=== PATIENT | female | born 1985 | race Caucasian/White ===

== ENCOUNTER 2019-05-20 14:09 | Inpatient (IN) | payer OTHER ==
[~2019-05-20] VITALS: Ht 147.3 cm; Wt 65.0 kg
[~2019-05-20 14:09] MED LIST: SAVELLA; [UNRECOGNIZED DRUG - REMARK]
--- NOTE | 2019-05-20 14:19 | ERD ---
ER Documentation Chief Complaint Chief Complaint HEADACHE, DIZZINESS, PT WITH CCIE SHUNT, NAUSEA, NO VOMITING HPI The patient is a 34-year-old female, presenting to the ER because of acute headache, acute dizziness, with nausea that began around 1 PM. She has had dizziness and headache for the last couple days, seen her physician and is awaiting for neurosurgery consultation. She denies fever, chills, neck pain, chest pain, dyspnea, abdominal pain, vomiting, diarrhea, constipation. She does not smoke nor drink Past medical history: Spina bifida, fibromyalgia Past surgical history: CCIE shunt when she was 6 years old, history of hydrocephalus, , extensive bilateral leg orthopedic surgeries ROS All systems reviewed and are negative except as per history of present illness. Medications Home Meds Reported Medications Gabapentin* (Gabapentin*) 600 Mg Tablet, 1800 MG PO QHS, #90 TAB 05/20/19 Nortriptyline Hcl* (Nortriptyline Hcl*) 75 Mg Capsule, 75 MG PO HS, TAB 05/20/19 Discontinued Reported Medications [Fibromyalgia Meds] No Conflict Check 11/28/12 [Savella] No Conflict Check 11/28/12 Allergies Allergies: Coded Allergies: Penicillins (Verified Allergy, Unknown, 05/20/19) PMhx/Soc History of Surgery: Yes (STAPH INFECTION TO BOTH LEG SX) Anesthesia Reaction: No Hx Neurological Disorder: No (SPINA BIFIDA) Hx Respiratory Disorders: No Hx Cardiac Disorders: No Hx Psychiatric Problems: No Hx Miscellaneous Medical Probl: No Hx Alcohol Use: No Hx Substance Use: No Hx Tobacco Use: No Physical Exam Vitals Vital Signs Date Temp Pulse Resp B/P (MAP) Pulse Ox O2 O2 Flow FiO2 Time Delivery Rate 05/20/19 106 16 130/96 100 Room Air 17:00 (107) 05/20/19 99.3 115 17 125/74 98 14:12 (91) Physical Exam Const: No acute distress. Head: Atraumatic. Eyes: Normal Conjunctiva. ENT: Normal External Ears, Nose and Mouth. Neck: Full range of motion. No meningismus. Resp: Clear to auscultation bilaterally. Cardio: Regular rate and rhythm. Abd: Soft, non distended, normal bowel sounds, non tender. Skin: No petechiae or rashes. Back: No midline or flank tenderness. Ext: Chronic bilateral lower extremity edema, no calf tenderness Neur: Awake and alert. Psych: Normal Mood and Affect. Result Diagram: 05/20/19 1436 05/20/19 1436 Results 24 hrs Laboratory Tests Test 05/20/19 14:36 05/20/19 14:56 05/20/19 14:58 White Blood Count 6.5 10^3/ul Red Blood Count 4.76 10^6/ul Hemoglobin 14.4 g/dl Hematocrit 43.8 % Mean Corpuscular Volume 92.0 fl Mean Corpuscular Hemoglobin 30.3 pg Mean Corpuscular 32.9 g/dl Hemoglobin Concent Red Cell Distribution Width 13.0 % Platelet Count 285 10^3/UL Mean Platelet Volume 9.1 fl Immature Granulocytes % 0.200 % Neutrophils % 56.5 % Lymphocytes % 36.8 % Monocytes % 5.1 % Eosinophils % 0.9 % Basophils % 0.5 % Nucleated Red Blood Cells % 0.0 /100WBC Immature Granulocytes # 0.010 10^3/ul Neutrophils # 3.7 10^3/ul Lymphocytes # 2.4 10^3/ul Monocytes # 0.3 10^3/ul Eosinophils # 0.1 10^3/ul Basophils # 0.0 10^3/ul Nucleated Red Blood Cells # 0.0 10^3/ul Sodium Level 142 mmol/L Potassium Level 4.3 mmol/L Chloride Level 107 mmol/L Carbon Dioxide Level 26 mmol/L Anion Gap 9 Blood Urea Nitrogen 16 mg/dl Creatinine 0.61 mg/dl Est Glomerular Filtrat Rate mL/min > 60 mL/min Glucose Level 90 mg/dl Calcium Level 9.6 mg/dl POC Beta HCG, Qualitative NEGATIVE Bedside Urine pH (LAB) 5.0 Bedside Urine Protein (LAB) Negative Bedside Urine Glucose (UA) Negative Bedside Urine Ketones (LAB) 1+ Bedside Urine Blood Negative Bedside Urine Nitrite (LAB) Negative Bedside Urine Leukocyte Esterase Trace (L Current Medications Medications Dose Sig/Byron Start Time Status Last (Trade) Ordered Route PRN Stop Time Admin Dose Reason Admin Ketorolac 15 mg ONCE STAT 05/20/19 DC 05/20/19 Tromethamine IV 19:20 19:26 (Toradol) 05/20/19 19:22 Procedures/MDM [address] [address] Radiology Main Line: [phone] DIAGNOSTIC IMAGING REPORT Patient: HALLIE BUSTOS : 1985 Age: 34 Sex: F [id number] DOS: 05/20/19 1424 Ordering MD: ERIK ALFONSO MD Location: E/R Room/Bed: PROCEDURE: CT Head without contrast. CLINICAL INDICATION: Headaches and dizziness TECHNIQUE: The study was performed utilizing a GE 64-slice multidetector CT scanner. Direct spiral axial CT images of the brain were obtained from the vertex to the skull base without contrast. Coronal and sagittal reformat images are provided. The CTDI vol is 38.77 mGy and the DLP is 713.51 mGy-cm. The images were reviewed on a PACS workstation. DICOM images are available. One or more of the following dose reduction techniques were used: Automated exposure control. Adjustment of the mA and/or kV according to patient size. Use of iterative reconstruction technique. COMPARISON: No prior studies are available for comparison. FINDINGS: A right transparietal ventriculoperitoneal shunt is seen with the tip in the right frontal lobe. The ventricles are slit-like. The massey-white matter differentiation is maintained. No intra or extra-axial fluid collection or mass effect or shift in the midline structures is seen. The visualized paranasal sinuses, mastoid air cells, orbits, and calvarium are unremarkable. IMPRESSION: 1. Slit-like ventricles which may be secondary to over shunting. 2. Right transparietal ventriculoperitoneal shunt with the tip in the right fr ontal lobe. Consider repositioning. In addition, comparison with priors would be helpful. RPTAT: HPNM Physician Rodo Date Time Electronically viewed and signed by Physician Rodo on 05/20/2019 15:08 / CC: ERIK ALFONSO MD [id number] [place] [address] Radiology Main Line: [phone] DIAGNOSTIC IMAGING REPORT Patient: HALLIE BUSTOS : 1985 Age: 34 Sex: F MR #: [id number] DOS: 05/20/19 1424 Ordering MD: ERIK ALFONSO MD Location: E/R Room/Bed: PROCEDURE: XR Chest. CLINICAL INDICATION: Shortness of breath and fever. TECHNIQUE: Single portable view of the chest was obtained COMPARISON: No priors for comparison FINDINGS: The trachea is midline. The cardiac silhouette and pulmonary vascularity are within normal limits. The lungs are clear. The costophrenic angles are sharp. There is a right-sided CCIE shunt catheter. IMPRESSION: 1. No evidence of acute cardiopulmonary disease. RPTAT: AAPP Physician Alicia Date Time Electronically viewed and signed by Physician Alicia on 05/20/2019 14:58 JL/ CC: ERIK ALFONSO MD [id number] MEDICAL MAKING DECISION: The patient is a 34-year-old female, presenting with acute headache with CCIE shunt concerning for over shunting versus CCIE shunt malfunction The differential diagnoses considered include but are not limited to CCIE over shunting, shunt malfunction, hydrocephalus Consultation: I discussed the patient with the on-call neurosurgeon Dr. Veras at 5:05 PM, who was made aware of the lab, the patient's condition, he evaluated the patient in the ER and request ICU admission Departure Diagnosis: Primary Impression: Headache Condition: Stable Comments I discussed the findings with the patient. I notified the patient with Dr. Riggins at 8:45 PM, who was made aware of the lab, the treatment, the patient condition. The patient is admitted to ICU Disclaimer: Inadvertent spelling and grammatical errors are likely due to EHR/dictation software use and do not reflect on the overall quality of patient care. Also, please note that the electronic time recorded on this note does not necessarily reflect the actual time of the patient encounter. ERIK ALFONSO MD May 20, 2019 14:19
[2019-05-20] MEDS ORDERED: NORT75CA PO (15:54)
[2019-05-20] MEDS ORDERED: GABA-526 PO (15:55)
[2019-05-20] MEDS ORDERED: KETOROLAC 15 MG INJ IV STA (19:20)
[2019-05-20] MEDS ORDERED: SOD CHLORIDE 0.9% 100 ML ONE (22:57)
[2019-05-20] MEDS ORDERED: IOHEXOL 100 ML ONE (22:57)
[2019-05-20] MEDS: GABAPENTIN 300 MG CAP PO SCH (23:00)
[2019-05-20] MEDS ORDERED: ONDANSETRON 4 MG INJ IV PRN (23:00)
[2019-05-21] VITALS (19 sets, daily range): BP systolic 105–138; BP diastolic 69–93; PULSE 81–107; RESP 10–24
--- NOTE | 2019-05-21 01:09 | QN ---
Documentation Comment H&P dict a/p 1. headache, likely related to malfunction of [employer] WORKER shunt and over shunting, admit to ICU per neurosurg oncall (Gravely), anticipate shunt revision tomorrow JUAN CHRISTINE MD May 21, 2019 01:09
[2019-05-21] MEDS: D5W-0.45 NACL + KCL 20 MEQ 1,000 ML IV SCH ×5 (01:57→22:45)
[2019-05-21] MEDS: morphine 4 MG/ML VIAL IV PRN ×4 (01:57→18:03)
--- NOTE | 2019-05-21 03:07 | CONS ---
DATE OF ADMISSION: 05/20/2019 DATE OF CONSULTATION: REQUESTING PHYSICIAN: Dr. Alfonso. INDICATION FOR CONSULTATION: Headaches. HISTORY OF PRESENT ILLNESS: The patient is a 34-year-old female with a history of spina bifida. The patient is a 34-year-old right-handed female with history of spina bifida. The patient's father esther russell the patient had a shunt placed at and had a revision at about age 5 to 6, where the shunt c atheter was irrigated. She had all her care at [facility]. The patient states she did not have any other issues with her shunt for the last 28 years. She states she never followed up with a doctor to assess it after age 6 that she can remember, though she admits this was partially because s he was afraid there might be a problem. However, until this point, she states she has had no general issues with her shunt. She states that yesterday she began having headaches that have progressively worsened in severity. However, she states the headaches are very focal, right-sided, and localize t o close to her bur hole for her shunt. She states that she occasionally has headaches a few times a month and they are always left-sided, but this has been for years and generally they are mild and onl y last a few hours. She states she has never had a headache this severe that she can remember. Curr ently, she states the headache is 4/10, but it was worse. She stated yesterday she felt some transie nt numbness in her right arm and she also stated that she saw some floating some black spots, but oth erwise denies any nausea, vomiting, fevers or chills, dizziness, or radiating pain down her upper or lower extremities. She denies any neck pain. She denies any left-sided headaches. The patient stat es that she may have hit her head over her shunt about a month ago, but she did not have any problems until today and is unsure if that is related. She states the headache is a sharp sensation and she does report some tenderness over the area. PAST MEDICAL HISTORY: Significant for spina bifida with a myelomeningocele closed at [facility] at . She also has a reported history of fibromyalgia and has had staph infections in both l ower extremities. She had orthopedic operations on her feet as a child. ALLERGIES: PENICILLIN. REVIEW OF SYSTEMS: The patient's 12-point review of systems performed. Pertinent positives and nega tives listed in history of present illness and below. CONSTITUTIONAL: The patient denies any recent fevers or chills. GASTROINTESTINAL: The patient reports that she only has a few bowel movements a month, but states la tely she has been having prolonged constipation with diarrhea. She states she did have a bowel movem ent today, but it only came out as rabbit pellets and very little. She does, however, deny any abdom inal pain. PAST SURGICAL HISTORY: Orthopedic operations on her feet as a child, as well as closure of myelomeni ngocele. Shunt placement at with one revision approximately at age 5 or 6, as well as a sherron an section 23 years ago. SOCIAL HISTORY: The patient is nonsmoker, nondrinker, denies illicit drug use. PHYSICAL EXAMINATION: VITAL SIGNS: The patient's temperature was 99.3, pulse 115, respirations 71, blood pressure 125/74, saturating 98% on room air. GENERAL: The patient is a short statured female with spina bifida. HEAD AND NECK: She is normocephalic. She has a right parietal ventriculoperitoneal shunt under the skin with a well-healed incision. There does appear to be a reservoir that does grossly appear to pu mp and refill externally. The patient's neck is supple and nontender. LUNGS: Clear to auscultation. CARDIAC: Sinus tachycardia. ABDOMEN: Nontender, nondistended, soft. EXTREMITIES: The patient has some chronic mild contractures, but no edema or cyanosis. NEUROLOGICAL: The patient is awake, alert, and oriented x3, fluent speech, follows commands readily appropriately. She has normal attention and concentration and intact remote, immediate and recent me nuria. Cranial nerves II through XII are serially tested and are intact. MOTOR: Upper extremities, 5/5. She has no obvious ataxia or dysmetria. She has intact sensation. The patient reports numbness and lack of sensation beginning at the level of the knee inferiorly, tho ugh she states she can have some sensation on the top of her foot, though not the bottom. The patien t has an approximately 4/5 hip flexor strength and 4-/5 quadriceps strength. No dorsiflexor, plantar flexor, or extensor hallucis longus strength. MUSCULOSKELETAL: The patient's back has a closed, heavily scarred pseudomeningocele that does not ap pear to have a soft palpable fontanelle or defect. REVIEW OF RADIOGRAPHIC RESULTS: I reviewed the patient's CT scan of the brain, as well as the radiol ogist's interpretation. There is not a study for comparison. The radiologist states that there is a right transparietal ventriculoperitoneal shunt seen with the tip in the right frontal lobe. The hodan tricles are slit-like. The massey white matter differentiation is maintained. No intra- or extraaxial fluid collection, mass effect or shift. The impression is that there are slit-like ventricles which may be secondary to over shunting and the right transparietal ventriculoperitoneal shunt with the ti p in the right frontal lobe. Consider repositioning. I reviewed the study myself. When I reviewed the study, the patient does have some evidence of a spina bifida. 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 Her ventricles are slit with the right being almost completely collapsed, but the left is sli ghtly more visible but still smaller than normally expected for her age. The catheter does not clear ly appear to be in the ventricle, though I think that the catheter may actually be in the ventricle, simply that it is so collapsed that it appears to be in the brain parenchyma. This is the better see n on the coronal views, though it is possible that the catheter may actually be intraparenchymal with no significant ventricular component. ASSESSMENT AND PLAN: A 34-year-old female with headache, assess for over shunting versus shunt malfu nction. I discussed patient's signs, symptoms, physical examination and radiographic findings with h er. I explained it is not clear to me that the patient has a shunt malfunction or over-draining. I explained to the patient had a very unusual situation in that she has had a functioning shunt for ove r 28 years without a malfunction. I did review a CT of the chest, abdomen and pelvis from 2013 and t he ventricular catheter was extremely long and entered the peritoneal cavity, so I doubt that the pat ient has any issue about overgrowing her catheter length. However, I still would like a shunt series to assess for the cervical and cranial component to the shunts. I explained that generally patients do not outgrow hydrocephalus and this would never generally be assumed; however, by the way the cath eter looks it almost appears as if it has been within the brain parenchyma and not intraventricular f or 28 years. Again, one would presume that when it was placed it truly was intraventricular and ther efore has remained intraventricular and it just appears to be extraventricular simply due to the kathy apsed ventricles. The patient's headache is somewhat unusual as it is very focal and a focal tendern ess rather diffusely throughout her head, though this could represent again over shunting or shunt ma lfunction. Unfortunately, I do not know the type of valve the patient had placed, though when it was placed it is unlikely that it was a programmable valve. I explained it is possible the patient's va lve could have malfunctioned at this point and she could be possibly over-draining, and this could be the source of her symptoms. Alternatively, the patient could have a shunt malfunction and she may r equire drainage though again, this appears very unusual with ventricles of her size. There is no tra nsependymal edema and indeed the ventricles are truly collapsed. Although patients with hydrocephalu s can have shunt malfunctions without any significant change in their ventricular size, this is usual ly in the context of subtle and unclear symptoms with normal or larger ventricles. It would seem ext remely unusual for someone to have collapsed ventricles and yet a shunt malfunction. Nevertheless, i f that the patient has had a functioning shunt for all these years she may have some sensitivity to c hange or there may not have been enough time for the ventricles to show any significant change. I nory brown had a long discussion about the patient's current issue. I explained I could try to tap the proxi mal shunt and see if I could obtain fluid that may indicate a functioning proximal shunt. However, I do not know the exact type of valve and what appears to be a shunt reservoir by palpation may not cl early be a place of fluid. I, therefore, stated I could try to tap it, but if it is not successful t hat does not mean it is not functioning, but the best way to assess this would be to take her to the OR for shunt exploration. I discussed the risks, benefits, and alternatives of such a procedure. I explained the patient has had a shunt catheter in her brain for over 28 years and it may be extremely risky to try to move it unless it comes forth easily. There may be a risk of bleed. Therefore, I t hink she probably will have to have a new catheter placed. I explained this may be difficult to alejandrinai cindy, especially since her ventricles are almost completely collapsed. I explained that even with jaron rotactic navigation the catheter may not be able to be placed in the ventricular system as before. I explained that a left frontal ventricular EVD may need to be placed and ultimately this used to shun t as the ventricular system is slightly larger. I also explained that the patient's distal catheter is unlikely to be able to be removed at this point, and a second catheter and abdominal entry would n eed to be performed. Nevertheless, the patient hopefully has a functioning distal catheter still, wh ich can be tested at the time of surgery with a manometer, and this may not require revision. Lastly , the patient's shunt valve could be malfunctioning. Indeed, she could simply have over-drainage, in which case a new valve could be placed. I explained that the patient actually has had a functioning shunt until now and that her brain may be very sensitive to a certain pressure and that equilibrium may be disrupted. I explained that sometimes it may be difficult at the valve setting for the typica l Medtronic Strata valve to find the "sweet spot" for the patient, which may not necessarily be at th e preset pressures. I explained that the patient may acclimate with time, but sometimes another type of valve may need to be used. I also discussed the possibility the patient could have further malfu nctions. The patient has not significantly changed neurologically. I explained that patients with s patricio bifida are sensitive, but given her history it is unclear if she truly has a shunt malfunction o r she simply is over-draining. I believe the patient should be admitted to the ICU. I would like to get an interval scan to see if there is any change in the ventricular size. In either case, I expla ined that I would recommend simply that she go to the OR and we explore the shunt with possible shunt revision or new proximal and/or distal end valve replacement. I also explained that she may require a ventriculostomy if a second catheter cannot be placed to drain. I explained this is very unusual situation with such small ventricles. The patient states she would like to consider, but would proba leon go ahead with shunt revision if there is no other option. The patient will be observed and I exp lained that should she have any significant worsening, I would just simply take her to the OR earlier for revision. The patient expressed understanding and agreement with this plan of care. Dictated By: CARLA CHEUNG MD LG/BITA Conf#: [id number] DID#: [id number] CC: JUAN CHRISTINE MD; ERIK ALFONSO MD;*End*
--- NOTE | 2019-05-21 04:04 | HP ---
DATE OF ADMISSION: 05/20/2019 CHIEF COMPLAINT: Headache. HISTORY OF PRESENT ILLNESS: The patient presents to the emergency room at [facility] with a 1-day history of headache which she localizes to the right parietal region and the location of her s cruz. She has had a shunt since bisque ware dipper, which was put in for hydrocephalus associated with spina bifida. Since that time to date, she has had intermittent headaches, but no other definitive s cruz problems. She has not had regular followup for this shunt in that time. PAST MEDICAL HISTORY: Significant only for spina bifida. OUTPATIENT MEDICATIONS: Include: 1. Gabapentin. 2. Nortriptyline. ALLERGIES: PENICILLIN. SOCIAL HISTORY: The patient lives at home in [place] with her and is wheelchair bound. Curt es tobacco, alcohol, or illicit drug use. FAMILY HISTORY: Noncontributory. REVIEW OF SYSTEMS: Five systems reviewed and found not to be revealing. PHYSICAL EXAMINATION: VITAL SIGNS: Blood pressure 113/86, pulse rate 99, respirations 18, temperature is 98.3. GENERAL: Pleasant woman in no acute distress. Alert and oriented x3. HEENT: Normocephalic, atraumatic without scleral icterus, perioral cyanosis. Mucous membranes moist . NECK: Soft and supple without masses. No evidence of jugular venous distention or carotid bruits. CHEST: Clear to auscultation and percussion bilaterally. HEART: Regular rate and rhythm, S1-S2, no added sounds. ABDOMEN: Soft, nontender, nondistended without palpable hepatosplenomegaly. EXTREMITIES: Without clubbing, cyanosis or edema. SKIN: Without rashes. NEUROLOGIC: Weakness of both legs associated with spina bifida, otherwise intact. LABORATORY STUDIES: Reveal hemoglobin 14.4 g/dL, white count 6500, platelets of 285,000. Sodium 142 , potassium 4.3, chloride 107, bicarbonate 26, BUN 16, creatinine 0.6, glucose is 90. UA is negative for signs of infection. Chest x-ray reveals no acute cardiopulmonary disease. CT scan of head show s slit-like ventricles, possibly related to over shunting. ASSESSMENT AND PLAN: 1. Headaches, likely related to over shunting and malfunction of ventriculoperitoneal shunt. Contin ue pain control. The patient has been discussed with the on-call neurosurgeon by the emergency room physician who insists the patient being placed in the intensive care unit. It is likely that shunt r evision will take place. Unclear if this will be a surgical procedure tomorrow. Dictated By: JUAN CHRISTINE MD RER/NTS Conf#: [id number] DID#: [id number]
[2019-05-21] MEDS: GABAPENTIN 300 MG CAP PO SCH ×3 (06:07→22:50)
[2019-05-21] MEDS: ACETAMINOPHEN 325 MG TAB PO PRN ×2 (08:24→16:59)
[2019-05-21] MEDS ORDERED: VANCOMYCIN IV PER PHARMACY XX SCH (12:30)
[2019-05-21] MEDS ORDERED: VANCOMYCIN 1 GM 250 ML IVPB SCH (13:00)
--- NOTE | 2019-05-21 19:39 | CONS ---
Consultation Date/Type/Reason Admit Date/Time May 20, 2019 at 20:46 Initial Consult Date Date/Time of Note DATE: 05/21/19 TIME: 19:27 24 HR Interval Summary Free Text/Dictation ADDENDUM: The patient was found to have gram positive cocci in the urine and blood. Due to this finding, I recommended that the patient have a EVD placed for now rather than introducing a new shunt in the face of bacteremia. After the infection has clear, the old shunt can be explored and a new shunt placed depending upon component that is non-functional. The patient expressed understanding and agreement with this plan of care. Exam/Review of Systems Exam Vitals Vital Signs Date Temp Pulse Resp B/P (MAP) Pulse Ox O2 O2 Flow FiO2 Time Delivery Rate 05/21/19 97 10 136/91 100 Room Air 18:00 (106) 05/21/19 98.3 12:00 Intake and Output 05/20/19 05/20/19 05/21/19 1515:00 23:00 07:00 IntakeIntake Total 550 ml OutputOutput Total 260 ml BalanceBalance 290 ml Results Result Diagram: 05/20/19 1436 05/20/19 1436 Results 24hrs Laboratory Tests Test 05/21/19 11:08 Prothrombin Time 13.9 Prothrombin Time Ratio 1.1 INR International Normalized Ratio 1.06 Activated Partial Thromboplast Time 32.6 Platelet Func Collagen/Epinephrine 232 H Platelet Function Collagen/ADP 146 Medications Medication Current Medications Nortriptyline HCl (Aventyl) 75 mg HS PO ; Start 05/21/19 at 21:00 Gabapentin (Neurontin) 600 mg Q8H PO Last administered on 05/21/19at 06:07; Admin Dose 600 MG; Start 05/20/19 at 23:00 Potassium Chloride/Dextrose/ Sod Cl 1,000 ml @ 125 mls/hr Q8H IV Last administered on 05/21/19at 10:45; Admin Dose 125 MLS/HR; Start 05/20/19 at 23:00 Acetaminophen (Tylenol Tab) 650 mg Q4H PRN PO pain/fever Last administered on 05/21/19at 16:59; Admin Dose 650 MG; Start 05/20/19 at 23:00 Ondansetron HCl (Zofran Inj) 4 mg Q4H PRN IV nausea; Start 05/20/19 at 23:00 Morphine Sulfate (morphine) 4 mg Q4H PRN IV severe pain 7-10 Last administered on 05/21/19at 18:03; Admin Dose 4 MG; Start 05/20/19 at 23:00 Vancomycin HCl (Vanco Iv Per Pharmacy) VANCOMYCIN PER PHARMACY PER PROTOCOL XX ; Start 05/21/19 at 12:30 Vancomycin/Sodium Chloride 250 ml @ 125 mls/hr Q8 IVPB ; Start 05/21/19 at 22:00 CARLA CHEUNG MD May 21, 2019 19:38
[2019-05-21] MEDS ORDERED: LIDOCAINE 0.5% (SDV) 50 ML INJ ONE (19:40)
[2019-05-21] MEDS ORDERED: THROMBIN 5000 UNIT (RECOTHROM) VIAL ONE (19:40)
[2019-05-21] MEDS ORDERED: GELATIN SIZE 100 SPONGE ONE (19:40)
[2019-05-21] MEDS ORDERED: SEVOFLURANE 15 MIN ONE (20:00)
--- NOTE | 2019-05-21 20:02 | PREAC ---
Date/Time of Note Date/Time of Note DATE: 05/21/19 TIME: 19:58 Anesthesia Eval and Record Evaluation Time Pre-Procedure Interview DATE: 05/21/19 TIME: 19:58 Age 34 Sex female NPO: 8 hrs Preoperative diagnosis [employer] shunt Malfunction Planned procedure Left Ventriculostomy Past Medical History Past Medical History: Includes Neuro: Other (Hx of Fibromyalgia and Spina Bifida) Heme: Other (Gram Positive Cocci infection) Surgery & Anesthesia Issues No known issue Meds Anticoagulation: No Beta Edith within 24 hr: No Reason Beta Edith not given: Pt. not on B-Edith Reported Medications Gabapentin* (Gabapentin*) 600 Mg Tablet, 1800 MG PO QHS, #90 TAB 05/20/19 Nortriptyline Hcl* (Nortriptyline Hcl*) 75 Mg Capsule, 75 MG PO HS, TAB 05/20/19 Discontinued Reported Medications [Fibromyalgia Meds] No Conflict Check 11/28/12 [Savella] No Conflict Check 11/28/12 Current Medications Nortriptyline HCl (Aventyl) 75 mg HS PO ; Start 05/21/19 at 21:00 Gabapentin (Neurontin) 600 mg Q8H PO Last administered on 05/21/19at 06:07; Admin Dose 600 MG; Start 05/20/19 at 23:00 Potassium Chloride/Dextrose/ Sod Cl 1,000 ml @ 125 mls/hr Q8H IV Last administered on 05/21/19at 10:45; Admin Dose 125 MLS/HR; Start 05/20/19 at 23:00 Acetaminophen (Tylenol Tab) 650 mg Q4H PRN PO pain/fever Last administered on 05/21/19at 16:59; Admin Dose 650 MG; Start 05/20/19 at 23:00 Ondansetron HCl (Zofran Inj) 4 mg Q4H PRN IV nausea; Start 05/20/19 at 23:00 Morphine Sulfate (morphine) 4 mg Q4H PRN IV severe pain 7-10 Last administered on 05/21/19at 18:03; Admin Dose 4 MG; Start 05/20/19 at 23:00 Vancomycin HCl (Vanco Iv Per Pharmacy) VANCOMYCIN PER PHARMACY PER PROTOCOL XX ; Start 05/21/19 at 12:30 Vancomycin/Sodium Chloride 250 ml @ 125 mls/hr Q8 IVPB ; Start 7/16/19 at 22:00 Meds reviewed: Yes Allergies Coded Allergies: Penicillins (Verified Allergy, Unknown, 05/20/19) Allergies Reviewed: Yes Labs/Studies Labs Reviewed: Reviewed by anesthesiologist Result Diagram: 05/20/19 1436 05/20/19 1436 test: Negative Studies: ECG (n/a), CXR (There is prominence of the bilateral perihilar regions. There is partially visualized ventriculoperitoneal catheter overlying the right hemithorax and right abdomen.) Pre-procedure Exam Last vitals Vital Signs Date Temp Pulse Resp B/P (MAP) Pulse Ox O2 O2 Flow FiO2 Time Delivery Rate 05/21/19 106 15 135/93 100 Room Air 19:00 (107) 05/21/19 98.3 12:00 Airway: Adequate mouth opening, Adequate thyromental dist Mallampati: Mallampati II Teeth: Normal Lung: Normal Heart: Normal ASA Physical Status ASA physical status: 3 Emergency: E Planned Anesthetic General/MAC: ETT Planned Pain Management Parenteral pain med Pre-operative Attestations Prior to commencing anesthesia and surgery, the patient was re-evaluated, there was verification of: *The patient's identity *The results of appropriate recent lab work and preoperative vital signs *The above evaluation not changing prior to induction *Anesthetic plan, risk benefits, alternative and complications discussed with patient/family; questions answered; patient/family understands, accepts and wishes to proceed. ANT ADORNO MD May 21, 2019 20:02
[2019-05-21] MEDS ORDERED: PROPOFOL 20 ML ONE (20:13)
[2019-05-21] MEDS ORDERED: MIDAZOLAM 1 MG/ML 2 ML INJ ONE (20:13)
[2019-05-21] MEDS ORDERED: FENTAnyl 50 MCG/ML VIAL ONE (20:13)
[2019-05-21] MEDS ORDERED: ROCURONIUM 50 MG INJ ONE (20:13)
[2019-05-21] MEDS ORDERED: LABETALOL HCL 20MG INJ IV PRN (20:30)
[2019-05-21] MEDS ORDERED: MEPERIDINE 25 MG INJ IV PRN (20:30)
[2019-05-21] MEDS ORDERED: hydrALAzine 20 MG INJ IV PRN (20:30)
[2019-05-21] MEDS ORDERED: EPHEDrine 25 MG/5 ML SYG IV PRN (20:30)
[2019-05-21] MEDS ORDERED: FENTAnyl 50 MCG/ML VIAL IV PRN ×2 (20:30)
[2019-05-21] MEDS ORDERED: DIPHENHYDRAMINE 50 MG INJ IV PRN (20:30)
[2019-05-21] MEDS ORDERED: ONDANSETRON 4 MG INJ IV PRN (20:30)
[2019-05-21] MEDS ORDERED: HYDROmorphONE 0.5 MG/0.5 ML SYG IV PRN ×2 (20:30)
[2019-05-21] MEDS ORDERED: ONDANSETRON 4 MG INJ ONE (20:33)
[2019-05-21] MEDS ORDERED: DEXAMETHASONE 4 MG/ML 5 ML INJ ONE (20:33)
[2019-05-21] MEDS ORDERED: PHENYLephrine (100 MCG/ML) 10ML SYG ONE (20:33)
[2019-05-21] MEDS ORDERED: METOCLOPRAMIDE 10 MG INJ ONE (20:33)
[2019-05-21] MEDS ORDERED: SUGAMMADEX SODIUM 200 MG/2 ML VIAL IV ONE (21:21)
--- NOTE | 2019-05-21 21:51 | OPR ---
Date/Time of Note Date/Time of Note DATE: 05/21/19 TIME: 21:49 Operative Report Preoperative Diagnosis 1. hydrocephalus 2. headache 3. spina bifida Postoperative Diagnosis 1. hydrocephalus 2. headache 3. spina bifida Operation/Procedure Performed 1. left frontal ventriculostomy Surgeon see signature line Movie Operator none Anesthesia Type: general Anesthesiologist: ANT ADORNO MD Estimated Blood Loss: minimal Transfusion none Specimen none Grafts/Implants none Tubes/Drains EVD Complications none Pt Condition Post Procedure: stable Disposition: PACU Procedure Description see dictation CARLA CHEUNG MD May 21, 2019 21:51
--- NOTE | 2019-05-21 21:53 | PAC ---
Date/Time of Note Date/Time of Note DATE: 05/21/19 TIME: 21:52 Post-Anesthesia Notes Post-Anesthesia Note Last documented vital signs Vital Signs Date Temp Pulse Resp B/P (MAP) Pulse Ox O2 O2 Flow FiO2 Time Delivery Rate 05/21/19 99.1 98 12 135/93 100 Room Air 21:50 (107) Activity: WNL Respiratory function: WNL Cardiovascular function: WNL Mental status: Baseline Pain reasonably controlled: Yes Hydration appropriate: Yes Nausea/Vomiting absent: Yes ANT ADORNO MD May 21, 2019 21:53
[2019-05-21] MEDS: VANCOMYCIN 750 MG (PMX) 250 ML IVPB SCH (22:28)
[2019-05-21] MEDS: NORTRIPTYLINE 25 MG CAP PO SCH (22:35)
[2019-05-22] VITALS (23 sets, daily range): BP systolic 78–135; BP diastolic 35–110; PULSE 80–125; RESP 11–20
[2019-05-22] MEDS: D5W-0.45 NACL + KCL 20 MEQ 1,000 ML IV SCH (03:08)
--- NOTE | 2019-05-22 03:16 | CONS ---
DATE OF ADMISSION: 05/20/2019 DATE OF CONSULTATION: SUBJECTIVE: The patient states that she feels worse. She states that she has still been having headaches intermi ttently, 07/16. Although the medication does help the headaches, it will wear off and the headache per sists. She still complains of localized right parietal pain around her shunt, though she states she did have some retroorbital and slightly right frontal pain today. She denies any nausea, vomiting, w eakness or visual changes. PHYSICAL EXAMINATION: VITAL SIGNS: The patient's temperature is 98.3, pulse 97, respirations 10, blood pressure 136/91, sa turating 100% on room air. NEUROLOGICAL: The patient is unchanged. She is awake, alert, oriented x3, fluent speech, follows co mmands readily and appropriately. Her motor exam is unchanged, 5/5 upper extremities and no pronator drift. Chronic lower extremity weakness due to spina bifida. REVIEW OF RADIOGRAPHIC RESULTS: I reviewed the patient's shunt series. A CT scan of her skull, her chest and abdomen. There does not appear to be any discontinuity of the shunt. The patient also had a repeat CT scan performed this morning and there does not appear to be any interval change in the s ize of the ventricles. The radiologist, again, states that there is an "over-shunting" pattern of th e ventricles, though I believe the catheter is in place. 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 There are also some scattered sub mm T2/FLAIR hyperintense foci of th e bilateral frontal subcortical white matter, left greater than right, which are nonspecific and may be a variant. The radiologist discussed the differential of sequelae of headache syndrome, sequelae of prior chronic inflammatory or even atypical demyelination; however, in this context, this appears unlikely. ASSESSMENT AND PLAN: A 34-year-old female with spina bifida and hydrocephalus with headaches and lik charla shunt malfunction. I had a long discussion again with the patient. I believe the patient likely simply has a shunt malfunction. I do not believe that she has over-shunting. We had previously dis cussed the difficulty there may be in replacing the catheter given her slit ventricles and removing t he catheter that is already in place. I explained that I would attempt to remove it. However, if th ere is any significant resistance, the catheter will have to be retained. I also discussed the umana ing of her valve and possibly her distal system if this does not appear to be patent after testing wi th manometry. I also explained the contingency that if I am unable to place a catheter in the ventri cular system given the collapsed nature, that I would then close the incision and perform a left fron maddy ventriculostomy, which hopefully can be placed. This will be a temporizing measure and I explain ed I would then likely bring her back for a left-sided shunt placement with navigation, as the left-s ided ventricles are slightly larger and sterotactic navigation should help to target the ventricular system if this is not possible from the right. The patient had been given Toradol; however, only one dose. Her platelet function assay came back slightly increased, as expected. Given the urgency of the situation, I discussed the risk of waiting for the patient; however, I believe that exploration i s necessary, given her risk of progressive problems is likely greater than risk of bleed. I reported the literature of multiple patients based on the pediatric literature of perioperative ketorolac chanelle ng used without any evidence of significant bleeding, as well as my own personal experience and train ing in using ketorolac as a primary pain management perioperatively for craniotomies. The patient ates that she understands I am raising a slight risk, but would prefer to proceed with surgery. I di scussed the risks, benefits, and alternatives of surgical intervention in detail with the patient inc luding, but not limited to, shunt malfunction, inability to place a proximal catheter, valve perforat ion, infection proximally or distally, and potential intracranial hemorrhage. The patient expressed understanding and agreement with this plan of care and will be taken to the OR for a shunt revision t onight. Dictated By: CARLA CHEUNG MD, LG/BITA Conf#: [id number] DID#: [id number] CC: JUAN CHRISTINE MD;*End*
[2019-05-22] MEDS: morphine 4 MG/ML VIAL IV PRN ×4 (03:38→20:02)
--- NOTE | 2019-05-22 03:48 | OPR ---
DATE OF OPERATION: 05/21/2019 PREOPERATIVE DIAGNOSES: 1. Spina bifida. 2. Hydrocephalus, possible shunt malfunction. POSTOPERATIVE DIAGNOSES: 1. Spina bifida. 2. Hydrocephalus, possible shunt malfunction. PROCEDURE: Left frontal ventriculostomy placement. SURGEON: Dr Carla Cheung. COMMERCIAL [employer] ESTATE PARALEGAL: None. ANESTHESIA: General. ANESTHESIOLOGIST: Dr. Marcus Webb ESTIMATED BLOOD LOSS: 2 mL. DRAINS PLACED: Ventriculostomy. FINDINGS: Stiff brain turgor. COMPLICATIONS: None. DISPOSITION: PACU. INDICATIONS: The patient is a 34-year-old female with a history of spina bifida and hydrocephalus with a shunt placed at , revised one time at age 6. The patient has had the shunt for 28 years and had no revisions or otherwise any significant symptoms. The patient reported 2 days of focal right parietal headaches that persisted and worsened. The patient had slit collapsed ventricles and there were no comparison CT scans, but it is possible that there was over-shunting versus shunt malfunction versus even a functional shunt, though when tapping the shunt reservoir I was unable to obtain fluid. Given that the patient had worsening of her symptoms, therefore, it was felt that a ventriculostomy should be placed given the patient does have spina bifida and a history of hydrocephalus and a Chiari 2 malformation. However, the patient had been diagnosed with bacteremia and it is also possible the patient may have had irritation from the bacteremia. Because of the uncertainty, it was felt best to place a catheter to asses her pressure and temporize any increased intracranial pressure should this be the source of the symptoms. The patient was already on antibiotics. DESCRIPTION OF PROCEDURE: The patient was brought to the OR. She was intubated. She was in the upright supine position. The patient had already received vancomycin and so redosing was not performed. The left side of the patient's forehead was shaved and sterilely prepped and draped. After a surgical timeout, procedure commenced. An #11 blade knife was used to make a 1 cm incision, 12 cm posterior to the nasion and 2.5 cm lateral to the midline. A self-retaining retractor was placed. A twist drill was used to create a bur hole. A spinal needle was used to open the dura. The brain turgor was extremely tough, as was the dura. A ventricular catheter was passed 6 cm perpendicular to the surface. There appeared to be a flash of fluid; however, this was unclear when the drain was lowered and minimal aspiration only revealed minimal amount of fluid, which was felt to possibly be irrigation used in the catheter. The catheter was removed and this was tried again in a slightly different trajectory. Lastly, a clear catheter was placed and again only a flash of fluid came forth. However, it was felt after multiple passes, that the trajectory was correct and given the patient had collapsed ventricles either there was not sufficient pressure to drain fluid or that the catheter may not be able to be accurately placed by this technique. It may be malpositioned. Time was given and then clear CSF did start to come up under some elevated pressure, though the flow was very slow, but steady. Given that this appeared to be therefore in the ventricle, the incision was closed with 3-0 nylon sutures on the skin and the drain secured to the skin with nylon sutures and Tegaderm. This was attached to the extraventricular drainage system. The patient was extubated and taken to recovery. All counts were reported correct at the end of the case. Dictated By: CARLA CHEUNG MD, LG/BITA Conf#: [id number] DID#: [id number] CC: JUAN CHRISTINE MD;*EndCC* MTDD
[2019-05-22] MEDS: PANTOPRAZOLE (EC) 40 MG TAB PO SCH (06:01)
[2019-05-22] MEDS: VANCOMYCIN 750 MG (PMX) 250 ML IVPB SCH ×3 (06:01→21:47)
[2019-05-22] MEDS: GABAPENTIN 300 MG CAP PO SCH ×3 (06:02→22:39)
--- NOTE | 2019-05-22 12:04 | PN ---
Date/Time of Note Date/Time of Note DATE: 05/22/19 TIME: 11:45 Assessment/Plan Lines/Catheters IV Catheter Type (from [facility]): Peripheral IV Garcia in Place (from [facility]): No Assessment/Plan Chief Complaint/Hosp Course 34 y.o. F with spina bifida, hydrocephalus, headaches- r/o shunt malfunction. The patient has a ventricular catheter that appear to be radiographically in the ventricle of CT. CSF has been spontaneously draining but I have keep it clamped to measure ICP. Her ICP has been normal 0-5, there is a dampened but real waveform present. I believe the patient's acute focal "headache" pain is likely due to her bacteremia rather than a failure of her shunt to drain. Her ICP has been normal despite minimal drainage. I will continue to monitor this but if her ICP remains normal, then one of 2 scenarios exist: that her shunt is functioning or she doesn't have hydrocephalus. Because she has spina bifida, it is generally always assumed (for safety reasons) that she still has hydrocephalus. I suspect that given the duration of any symptoms and the intermittent nature of her headaches previously is likely due to "overshunting" with intermittent, transi ent collapse of the ventricular catheter due to loss of CSF. This correlates best with the radiographic findings of slit-like ventricles. This is generally not a life-threatening condition and the patient can live with this or seek to have a valve revision to raise her pressure. In the acute setting, given the infection, I would simply recommend continued ICP monitoring and antibiotics. If her focal headaches symptoms improve and her ICP remains low then I will remove the EVD in a few days. I doubt shunt itself is actually infected although I cannot propose the mechanism for bacteremia to cause her focal tenderness. I would recommend being conservative in this scenario. However, if there is recurrence then she may than to have her valve changed. The patient expressed understanding and agreement with this plan of care. Subjective 24 Hr Interval Summary Patient reports that her headaches are slightly better and occur less frequently. According to the patient's father and fiance, the patient has been having intermittent headaches for over a year, but only for the past 2 days were these headaches severe. The focal nature of the headaches is newer as well, though they have always been lateralized to the right. Exam/Review of Systems Vital Signs Vitals Vital Signs Date Temp Pulse Resp B/P (MAP) Pulse Ox O2 O2 Flow FiO2 Time Delivery Rate 05/22/19 118 20 110/71 100 Room Air 11:00 (84) 05/22/19 98.5 07:00 Intake and Output 05/21/19 05/21/19 05/22/19 1414:59 22:59 06:59 IntakeIntake Total 1000 ml 2975 ml 1145 ml OutputOutput Total 420 ml 360 ml 1375 ml BalanceBalance 580 ml 2615 ml -230 ml Exam Constitutional: alert, oriented Psych: nl mood/affect Head: normocephalic, other (EVD left frontal ) Eyes: EOMI, PERRL Neurological: ELECTRICAL LINE SPLICER II-XII intact, nl mental status, other (baseline motor exam.) Results Free Text/Dictation EVD clamped, < 5 ml total drained since placed. Result Diagram: 05/22/19 0451 05/22/19 0451 CARLA CHEUNG MD May 22, 2019 12:03
--- NOTE | 2019-05-22 12:47 | PN ---
Date/Time of Note Date/Time of Note DATE: 05/22/19 TIME: 12:44 Subjective Patient reports feeling better. Less headache. No abdominal pain, nausea, or vomiting Objective Vitals Vital Signs Date Temp Pulse Resp B/P (MAP) Pulse Ox O2 O2 Flow FiO2 Time Delivery Rate 05/22/19 117 12:00 05/22/19 98.6 17 111/55 100 Room Air 12:00 (73) Intake and Output 05/21/19 05/21/19 05/22/19 1515:00 23:00 07:00 IntakeIntake Total 1000 ml 2975 ml 1270 ml OutputOutput Total 475 ml 405 ml 1375 ml BalanceBalance 525 ml 2570 ml -[address] Neck supple Lungs clear to auscultation bilaterally Cardiac regular rate and rhythm Abdomen soft nontender nondistended normoactive bowel sounds No edema Nonfocal Results Result Diagram: 05/22/19 0451 05/22/19 0451 Medications Medications Current Medications Nortriptyline HCl (Aventyl) 75 mg HS PO Last administered on 05/21/19at 22:35; Admin Dose 75 MG; Start 05/21/19 at 21:00 Gabapentin (Neurontin) 600 mg Q8H PO Last administered on 05/22/19at 06:02; Admin Dose 600 MG; Start 05/20/19 at 23:00 Potassium Chloride/Dextrose/ Sod Cl 1,000 ml @ 125 mls/hr Q8H IV Last administered on 05/22/19at 03:08; Admin Dose 125 MLS/HR; Start 05/20/19 at 23:00 Acetaminophen (Tylenol Tab) 650 mg Q4H PRN PO pain/fever Last administered on 05/21/19at 16:59; Admin Dose 650 MG; Start 05/20/19 at 23:00 Ondansetron HCl (Zofran Inj) 4 mg Q4H PRN IV nausea; Start 05/20/19 at 23:00 Morphine Sulfate (morphine) 4 mg Q4H PRN IV severe pain 7-10 Last administered on 05/22/19at 07:15; Admin Dose 4 MG; Start 05/20/19 at 23:00 Vancomycin HCl (Vanco Iv Per Pharmacy) VANCOMYCIN PER PHARMACY PER PROTOCOL XX ; Start 05/21/19 at 12:30 Vancomycin/Sodium Chloride 250 ml @ 125 mls/hr Q8 IVPB Last administered on 05/22/19at 06:01; Admin Dose 125 MLS/HR; Start 05/21/19 at 22:00 Pantoprazole (Protonix Tab) 40 mg DAILY@06 PO Last administered on 05/22/19at 06:01; Admin Dose 40 MG; Start 05/22/19 at 06:00 Ceftriaxone Sodium 50 ml @ 100 mls/hr Q24H IVPB ; Start 05/22/19 at 12:30 VTE Prophylaxis [place] [facility] risk: 5 SCD applied [place] [facility] Yes Lines/Catheters IV Catheter Type: Saline Lock Garcia in Place: No Assessment/Plan Assessment/Plan 34-year-old female with spina bifida Hydrocephalus Status post [employer] shunt placement in the past. Rule out malfunction Status post ventriculostomy Staph bacteremia. This may be a contaminant since only 1 out of 2 bottles are positive E. coli UTI Continue ICU monitoring Start Rocephin 1 g daily Continue vancomycin and check final blood culture results Neurosurgical follow-up is appreciated PAULY MARTINO MD May 22, 2019 12:47
[2019-05-22] MEDS: CEFTRIAXONE 1 GM/50 ML (PMX) 50 ML IVPB SCH (13:22)
[2019-05-22] MEDS: NORTRIPTYLINE 25 MG CAP PO SCH (20:31)
[2019-05-23] VITALS (24 sets, daily range): BP systolic 81–118; BP diastolic 42–85; PULSE 88–128; RESP 12–23
[2019-05-23] MEDS: ACETAMINOPHEN 325 MG TAB PO PRN ×2 (00:53→12:33)
[2019-05-23] MEDS ORDERED: VANCOMYCIN 1 GM 250 ML IVPB SCH (06:00)
[2019-05-23] MEDS: GABAPENTIN 300 MG CAP PO SCH ×3 (06:09→22:26)
[2019-05-23] MEDS: PANTOPRAZOLE (EC) 40 MG TAB PO SCH (06:10)
--- NOTE | 2019-05-23 10:14 | PN ---
Date/Time of Note Date/Time of Note DATE: 05/23/19 TIME: 10:11 Subjective Doing well. Complains of focal headache at times. No abdominal pain, nausea, vomiting Objective Vitals Vital Signs Date Temp Pulse Resp B/P (MAP) Pulse Ox O2 O2 Flow FiO2 Time Delivery Rate 05/23/19 98.0 98 12 103/58 98 Room Air 08:00 (73) Intake and Output 05/22/19 05/22/19 05/23/19 1515:00 23:00 07:00 IntakeIntake Total 1170 ml 695 ml 10 ml OutputOutput Total 1055 ml 340 ml 210 ml BalanceBalance 115 ml 355 ml -200 ml Neck supple Clear to auscultation bilaterally Regular rate and rhythm Soft nontender nondistended normoactive bowel sounds No edema Nonfocal Results Result Diagram: 05/23/19 0454 05/23/19 0454 Medications Medications Current Medications Nortriptyline HCl (Aventyl) 75 mg HS PO Last administered on 05/22/19at 20:31; Admin Dose 75 MG; Start 05/21/19 at 21:00 Gabapentin (Neurontin) 600 mg Q8H PO Last administered on 05/23/19at 06:09; Admin Dose 600 MG; Start 05/20/19 at 23:00 Acetaminophen (Tylenol Tab) 650 mg Q4H PRN PO pain/fever Last administered on 05/23/19at 00:53; Admin Dose 650 MG; Start 05/20/19 at 23:00 Ondansetron HCl (Zofran Inj) 4 mg Q4H PRN IV nausea; Start 05/20/19 at 23:00 Morphine Sulfate (morphine) 4 mg Q4H PRN IV severe pain 7-10 Last administered on 05/22/19at 20:02; Admin Dose 4 MG; Start 05/20/19 at 23:00 Pantoprazole (Protonix Tab) 40 mg DAILY@06 PO Last administered on 05/23/19at 06:10; Admin Dose 40 MG; Start 05/22/19 at 06:00 Ceftriaxone Sodium 50 ml @ 100 mls/hr Q24H IVPB Last administered on 05/22/19at 13:22; Admin Dose 100 MLS/HR; Start 05/22/19 at 12:30 VTE Prophylaxis Risk score (from [facility])>0 risk: 6 SCD applied (from [facility]): Yes Lines/Catheters IV Catheter Type: Saline Lock Garcia in Place: No Assessment/Plan Assessment/Plan 34-year-old female with acute on chronic headaches Spina bifida Status post [employer] shunt placement Status post ventriculostomy with normal ICP E. coli UTI Coag negative staph bacteremia, 1 out of 2 bottles, most likely contaminant Continue Rocephin and discontinue vancomycin Continue ventriculostomy Case was discussed with neurosurgeon. He is recommending neurology consultation PAULY MARTINO MD May 23, 2019 10:14
[2019-05-23] MEDS: CEFTRIAXONE 1 GM/50 ML (PMX) 50 ML IVPB SCH (12:33)
--- NOTE | 2019-05-23 13:32 | PREAC ---
Date/Time of Note Date/Time of Note DATE: 05/23/19 TIME: 13:32 Anesthesia Eval and Record Evaluation Time Pre-Procedure Interview DATE: 05/23/19 TIME: 13:32 Age 34 Sex female NPO: 8 hrs Preoperative diagnosis shunt malfunction Planned procedure DIE TECHNICIAN SHUNT EXPLORATION, POSSIBLE REVISION Past Medical History Past Medical History: Includes (Hx of Fibromyalgia and Spina Bifida) GI: Obesity Surgery & Anesthesia Issues No known issue Meds Anticoagulation: No Beta Edith within 24 hr: No Reason Beta Edith not given: Pt. not on B-Edith Reported Medications Gabapentin* (Gabapentin*) 600 Mg Tablet, 1800 MG PO QHS, #90 TAB 05/20/19 Nortriptyline Hcl* (Nortriptyline Hcl*) 75 Mg Capsule, 75 MG PO HS, TAB 05/20/19 Discontinued Reported Medications [Fibromyalgia Meds] No Conflict Check 11/28/12 [Savella] No Conflict Check 11/28/12 Current Medications Nortriptyline HCl (Aventyl) 75 mg HS PO Last administered on 05/22/19at 20:31; Admin Dose 75 MG; Start 05/21/19 at 21:00 Gabapentin (Neurontin) 600 mg Q8H PO Last administered on 05/23/19at 06:09; Admin Dose 600 MG; Start 05/20/19 at 23:00 Acetaminophen (Tylenol Tab) 650 mg Q4H PRN PO pain/fever Last administered on 05/23/19at 12:33; Admin Dose 650 MG; Start 05/20/19 at 23:00 Ondansetron HCl (Zofran Inj) 4 mg Q4H PRN IV nausea; Start 05/20/19 at 23:00 Morphine Sulfate (morphine) 4 mg Q4H PRN IV severe pain 7-10 Last administered on 05/22/19at 20:02; Admin Dose 4 MG; Start 05/20/19 at 23:00 Pantoprazole (Protonix Tab) 40 mg DAILY@06 PO Last administered on 05/23/19at 06:10; Admin Dose 40 MG; Start 05/22/19 at 06:00 Ceftriaxone Sodium 50 ml @ 100 mls/hr Q24H IVPB Last administered on 05/23/19at 12:33; Admin Dose 100 MLS/HR; Start 05/22/19 at 12:30 Meds reviewed: Yes Allergies Coded Allergies: Penicillins (Verified Allergy, Unknown, 05/20/19) Allergies Reviewed: Yes Labs/Studies Labs Reviewed: Reviewed by anesthesiologist Result Diagram: 05/23/19 0454 05/23/19 0454 Laboratory Tests 05/23/19 04:54 test: Negative Studies: ECG, CXR Pre-procedure Exam Last vitals Vital Signs Date Temp Pulse Resp B/P (MAP) Pulse Ox O2 O2 Flow FiO2 Time Delivery Rate 05/23/19 128 21 117/79 100 13:00 (92) 05/23/19 99.4 Room Air 12:00 Airway: Adequate mouth opening, Adequate thyromental dist Mallampati: Mallampati II Teeth: Normal Lung: Normal Heart: Normal ASA Physical Status ASA physical status: 2 Emergency: None Planned Anesthetic General/MAC: ETT Pre-operative Attestations Prior to commencing anesthesia and surgery, the patient was re-evaluated, there was verification of: *The patient's identity *The results of appropriate recent lab work and preoperative vital signs *The above evaluation not changing prior to induction *Anesthetic plan, risk benefits, alternative and complications discussed with patient/family; questions answered; patient/family understands, accepts and wishes to proceed. YASMIN PIEDRA May 23, 2019 13:32
[2019-05-23] MEDS ORDERED: SOD CHLORIDE 0.9% 500 ML IV ONE (19:00)
[2019-05-23] MEDS: NORTRIPTYLINE 25 MG CAP PO SCH (20:17)
--- NOTE | 2019-05-23 20:27 | CONS ---
DATE OF ADMISSION: 05/20/2019 DATE OF CONSULTATION: 05/23/2019 SUBJECTIVE: The patient states she still has been having headaches, though they have been less frequ ent and less severe. The patient's fiance again states that the patient has been having headaches in termittently for over a year, which the patient appeared to downplay on admission, though she states these headaches are nowhere near as severe as the headaches she has been having. These are generally right sided without localized tenderness to the shunt. The patient denies any fevers or chills. Marilyn jaeger also gives a history that she may have intermittent left arm numbness and weakness, that is transie nt, but resolved completely. Lastly, the complains of being intermittently sleepy and spontaneously falling asleep. For the last 3 days that I have seen her, she has not appeared this way, but today farzaneh yusuf I saw her this morning she appeared to doze off. Her fiance again states she has been doing this for at least the past 3 months. PHYSICAL EXAMINATION: VITAL SIGNS: The patient's temperature 99.4, pulse 116, respirations 20, blood pressure 116/72, satu rating 100% on room air. GENERAL: The patient neurologically is unchanged. She is awake, alert, though she did doze off duri ng the time I spent discussing issues with her, which was over a half hour in total. She currently denies headache, though she stated earlier she had some headache. She otherwise is neurologically at her baseline. LABORATORIES: Her white count today was 8.6, hemoglobin 11.1. There is no shift. Platelets were 24 9. The patient's sodium 141, BUN and creatinine 13 and 0.59 with a glucose of 113. The patient has had low urine output and has also had some edema in her lower extremities. REVIEW OF RADIOGRAPHIC RESULTS: I reviewed the patient's CT scan of the head that was performed eyad connor. Again, there are bilateral intraventricular shunts with a new ventricular catheter. The ventricl es are slightly larger than the prior scan where there appeared to be split, but currently appear to be still perhaps less than normal in size. ASSESSMENT AND PLAN: A 34-year-old female with a possible shunt malfunction. I had a long discussio n with the patient and her fiance. The patient is a very complex situation. The patient's intracran ial pressure measurements have been within normal limits, though there may have been some adjustment, though the zero point may have been variable per the nursing, so her intracranial pressure has range d anywhere from 0 to 12 with a good waveform. At one point during the night, the intracranial pressu re supposedly raised up to 30 when she was lying flat and the waveform had dampened and disappeared, but it appears they may have been kinking because this resolved when the patient was sat back up and the waveform reappeared. At the time I saw the patient, her intracranial pressure was ranging from a pproximately 8 to 12 with a good waveform. I opened up the drain and 3 drops of cerebrospinal fluid immediately came out, and it was closed again, though there did not appear to be constant drainage. Indeed, when the drain was lowered to try to deliver more cerebrospinal fluid, no cerebrospinal fluid would come out and the waveform dampened. After waiting about 30 seconds, the waveform reappeared, suggesting that there was over-drainage and transient obstruction of the catheter. I explained that the catheter may only be minimally in the frontal ventricle, but still provides a good waveform, and some cerebrospinal fluid can be drained. The patient also was shown to have had 2 blood cultures and only one of them came back positive for c oagulase-negative staph. This is different from the bacteria that grew out in her urine, which was E scherichia coli. Therefore, it appears that the blood cultures were likely a contaminant and the pat ient probably did not have any significant bacteremia. Given the fact that the patient remains sympt omatic, although intracranial pressure appears to be normal, I discussed exploring the shunt to asses s for drainage. It is possible the patient was over-shunted by excessive drainage from the catheter. However, the ventricles are slightly bigger than they were on admission, which could suggest obstru ction of drainage, rather than over drainage. Still, the ventricles are only minimal increase in siz e but given the patient's brain turgor, this expansion of the ventricles may not necessarily be rapid . I therefore advise taking the patient for a shunt exploration. The patient understands there may be significant risk with this. There may be difficulty in placement of the ventricular catheter into the ventricle. If this is necessary, and the catheter is not working, I may be able to irrigate th e catheter that is currently present and she would likely need a valve change regardless and this to o may have some difficulty, given that the embedded catheter, both distal and proximal, are over 28 y ears old and may be extremely friable. An entirely new shunt system may have to be placed. I will l eave the ventricular catheter in as well, though as it does appear to be measuring pressure accuratel y, though it may be able to be replaced to drain more fluid more optimally. The risks, benefits, alt ernatives had previously been explained to the patient and the patient elected for surgery. We will continue with ICU observation for now with the external ventricular drain clamped to pressure monitor ing. Dictated By: CARLA CHEUNG MD LG/BITA Conf#: [id number] DID#: [id number] CC: JUAN CHRISTINE MD;*[facility]*
[2019-05-23] MEDS: DEXTROSE 5%-0.45% NACL 1,000 ML IV SCH (22:33)
[2019-05-24] VITALS (20 sets, daily range): BP systolic 91–119; BP diastolic 51–76; PULSE 88–124; RESP 13–32
[2019-05-24] MEDS: PANTOPRAZOLE (EC) 40 MG TAB PO SCH (05:40)
[2019-05-24] MEDS: GABAPENTIN 300 MG CAP PO SCH ×3 (06:05→22:41)
[2019-05-24] MEDS: DEXTROSE 5%-0.45% NACL 1,000 ML IV SCH ×3 (07:58→22:47)
[2019-05-24] MEDS ORDERED: GLYCOPYRROLATE 0.4 MG INJ ONE ×2 (09:54→13:11)
[2019-05-24] MEDS ORDERED: SUCCINYLCHOLINE CHLORIDE 100 MG/5 ML SYG IV ONE (09:54)
[2019-05-24] MEDS ORDERED: NEOSTIGMINE 3 MG/3 ML SYRINGE ONE (09:54)
[2019-05-24] MEDS ORDERED: LIDOCAINE 2% (SDV) 5 ML INJ ONE (09:54)
[2019-05-24] MEDS ORDERED: ROCURONIUM 50 MG INJ ONE ×2 (09:54)
[2019-05-24] MEDS ORDERED: PROPOFOL 20 ML ONE (09:54)
[2019-05-24] MEDS ORDERED: MEPERIDINE 100 MG INJ ONE (10:29)
[2019-05-24] MEDS ORDERED: CEFAZOLIN 1 GM INJ ONE (10:51)
[2019-05-24] MEDS ORDERED: THROMBIN 5000 UNIT (RECOTHROM) VIAL ONE (11:03)
[2019-05-24] MEDS ORDERED: LIDOCAINE 1%/EPI 30 ML INJ ONE (11:03)
[2019-05-24] MEDS ORDERED: POVIDONE IODINE 10% 28.4 GM OINT ONE (11:03)
[2019-05-24] MEDS ORDERED: GELATIN SIZE 100 SPONGE ONE (11:03)
[2019-05-24] MEDS ORDERED: LIDOCAINE 0.5% (SDV) 50 ML INJ ONE (11:03)
--- NOTE | 2019-05-24 11:46 | PN ---
Date/Time of Note Date/Time of Note DATE: 05/24/19 TIME: 11:44 Subjective Doing well. Still having focal headaches. No nausea vomiting Objective Vitals Vital Signs Date Temp Pulse Resp B/P (MAP) Pulse Ox O2 O2 Flow FiO2 Time Delivery Rate 05/24/19 109/72 Room Air 09:00 (84) 05/24/19 98.8 88 100 08:00 Intake and Output 05/23/19 05/23/19 05/24/19 1515:00 23:00 07:00 IntakeIntake Total 1090 ml 760 ml 800 ml OutputOutput Total 262 ml 400 ml 1050 ml BalanceBalance 828 ml 360 ml -[address] Neck supple Clear to auscultation bilaterally Regular rate and rhythm Soft nontender nondistended normoactive bowel sounds No edema Nonfocal Results Result Diagram: 05/24/19 0501 05/24/19 0501 Medications Medications Current Medications Nortriptyline HCl (Aventyl) 75 mg HS PO Last administered on 05/23/19 20:17; Admin Dose 75 MG; Start 05/21/19 at 21:00 Gabapentin (Neurontin) 600 mg Q8H PO Last administered on 05/24/19 06:05; Admin Dose 600 MG; Start 05/20/19 at 23:00 Acetaminophen (Tylenol Tab) 650 mg Q4H PRN PO pain/fever Last administered on 05/23/19 12:33; Admin Dose 650 MG; Start 05/20/19 at 23:00 Ondansetron HCl (Zofran Inj) 4 mg Q4H PRN IV nausea; Start 05/20/19 at 23:00 Morphine Sulfate (morphine) 4 mg Q4H PRN IV severe pain 7-10 Last administered on 05/22/19 20:02; Admin Dose 4 MG; Start 05/20/19 at 23:00 Pantoprazole (Protonix Tab) 40 mg DAILY@06 PO Last administered on 05/24/19 05:40; Admin Dose 40 MG; Start 05/22/19 at 06:00 Ceftriaxone Sodium 50 ml @ 100 mls/hr Q24H IVPB Last administered on 05/23/19 12:33; Admin Dose 100 MLS/HR; Start 05/22/19 at 12:30 Dextrose/Sodium Chloride 1,000 ml @ 100 mls/hr Q10H IV Last administered on 05/24/19at 07:58; Admin Dose 100 MLS/HR; Start 05/23/19 at 23:00 VTE Prophylaxis Risk score (from Ns)>0 risk: 5 SCD applied (from Ns): Yes Lines/Catheters IV Catheter Type: Saline Lock Garcia in Place: No Assessment/Plan Assessment/Plan 34-year-old female with acute on chronic headaches Spina bifida 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
[2019-05-24] MEDS ORDERED: ONDANSETRON 4 MG INJ ONE (13:12)
[2019-05-24] MEDS ORDERED: METOCLOPRAMIDE 10 MG INJ ONE (13:12)
[2019-05-24] MEDS ORDERED: PHENYLephrine (100 MCG/ML) 10ML SYG ONE (13:14)
[2019-05-24] MEDS ORDERED: BACITRACIN/POLYMYXIN 28.35 GM OINT TOP ONE (13:26)
[2019-05-24] MEDS ORDERED: HYDROmorphONE 0.5 MG/0.5 ML SYG IV PRN ×3 (13:30)
[2019-05-24] MEDS ORDERED: FENTAnyl 50 MCG/ML VIAL IV PRN ×3 (13:30)
[2019-05-24] MEDS ORDERED: METOCLOPRAMIDE 10 MG INJ IV PRN (13:30)
[2019-05-24] MEDS ORDERED: ONDANSETRON 4 MG INJ IV PRN (13:30)
--- NOTE | 2019-05-24 14:11 | OPR ---
Date/Time of Note Date/Time of Note DATE: 05/24/19 TIME: 14:08 Operative Report Preoperative Diagnosis 1. shunt malfunction. Postoperative Diagnosis 1. shunt malfunction. Operation/Procedure Performed 1. TALEND DEVELOPER shunt revision Surgeon see signature line Mechanical Service Specialist none Anesthesia Type: general Anesthesiologist: ADAM LOPEZ MD Estimated Blood Loss: 10 - 50 ml's Transfusion none Specimen CSF Grafts/Implants none Tubes/Drains none Complications none Pt Condition Post Procedure: stable Procedure Description see dictation CARLA CHEUNG MD May 24, 2019 14:11
[2019-05-24] MEDS: CEFTRIAXONE 1 GM/50 ML (PMX) 50 ML IVPB SCH (14:40)
--- NOTE | 2019-05-24 15:06 | OPR ---
DATE OF OPERATION: 05/24/2019 PREOPERATIVE DIAGNOSES: 1. Spina bifida. 2. Hydrocephalus. 3. Shunt malfunction. POSTOPERATIVE DIAGNOSES: 1. Spina bifida. 2. Hydrocephalus. 3. Shunt malfunction. Procedure was exploration and revision of ventriculoperitoneal shunt. SURGEON: Carla Cheung MD DOPER OPERATOR: None. ANESTHESIOLOGIST: Dr. Kenneth Walker. ANESTHESIA: General endotracheal. SPECIMEN COLLECTED: CSF. FINDINGS: Malfunctioning shunt valve. COMPLICATIONS: None. ESTIMATED BLOOD LOSS: 20 mL. DRAINS PLACED: None. DISPOSITION: Recovery. INDICATIONS: The patient is a 34-year-old female with a history of spina bifida and hydrocephalus. The patient has only had 1 shunt revision 28 years ago at age 6 and had reported not had any problems until the last year when she began having intermittent headaches. A few days ago the patient began having more localized sharp headaches. The patient's CT scan showed slit-like ventricles suggestive of over shunting. It was not clear if the patient had over shunting as there is no comparison CT sca ns and also because of the size of the ventricles. The patient had a ventriculostomy placed and her pressures were noted to be within normal range. Nevertheless, the patient remains symptomatic. The patient initially was to go for shunt revision, but she was found to have what appeared to be bactere shira but this was subsequently determined to be a contaminant. The patient was taken to the OR for ex ploration. The risks, benefits, and alternatives of surgical intervention were discussed. The patie nt elected for surgery. DESCRIPTION OF PROCEDURE: The patient was brought to the OR. She was sedated, intubated, and anesth esia was successfully induced. The patient was placed in the supine position on the operative table with her head turned to the right. Because of the patient's small ventricular size, BrainLAB framele ss stereotactic guidance was to be used, and this was set up and registered. The patient was sterile ly prepped and draped from the head to the abdomen in anticipation of a possible this abdominal samir ion. After surgical time-out, the procedure commenced. A 15 blade knife was used to open and extend what appeared to be a scar from the patient's old incision. Bovie electrocautery was used to dissec t down to the fascia, and then the myocutaneous flap over the shunt valve was reflected to expose the entirety of the shunt. There was a Rickham reservoir over the bur hole, and then the shunt which le d to the distal catheter. I first checked to see if the proximal catheter was working rather than ex posing the entire device and because the catheter had been in place for 28 years, a 25-gauge needle w as used to insert into the Rickham reservoir. I was able to easily aspirate out clear, colorless CSF , 3 mL without any resistance. This appeared to confirm the functioning proximal catheter. Next, th e distal end of the valve was disconnected from the proximal and distal catheter. Upon disconnection CSF came out readily through the distal end of the catheter. The flow indeed appeared to be very st vivienne and much stronger than what would be typically expected from a functioning valve. Next, the dis maddy valve was assessed for patency. A manometer was connected and allowed to drain into the abdomen. This drained readily and quickly into the peritoneal cavity without significant resistance. I also flushed the distal catheter with 5 mL of saline, and there was no resistance to this flow and this w as taken to prove that the distal catheter was functioning properly. Therefore, it appeared that the valve was malfunctioning. The patient appeared to have a Medtronic Delta valve with one dot, indica ting a 1.5 level setting. The valve was from the proximal end of the distal catheter and t he proximal catheter. I then used a manometer to test the flow of the fluid through the catheter wit h a manometer. There was absolutely no resistance and the column of fluid drained directly out to ze ro, indicating a malfunctioning valve. Therefore, it was determined that the valve was malfunctionin g. The proximal catheter and distal catheter appeared to be patent. A delta 1 valve was then set at 1.5 and connected to the proximal catheter. CSF drained through this proximal catheter and therefor e it was secured with two 2-0 silk ties to the proximal catheter. Again, there was evidence of flow through the valve and therefore the distal end of the valve was connected to the proximal catheter an d secured with silk sutures. The valve was pumped and pumped and refilled well. The incision was th en irrigated with bacitracin irrigation and the incision was closed with 2-0 Vicryl sutures and stapl es. A sterile dressing was applied. The patient was awakened, extubated, and taken to recovery. Al l counts were reported correct at the end of the case. Dictated By: CARLA CHEUNG MD LG/BITA Conf#: [id number] DID#: [id number] CC: JUAN CHRISTINE MD;*[facility]*
[2019-05-24] MEDS: morphine 4 MG/ML VIAL IV PRN ×2 (15:16→22:53)
[2019-05-24] MEDS: ACETAMINOPHEN 1000MG/100ML IV 100 ML IVPB PRN ×2 (17:09→22:44)
--- NOTE | 2019-05-24 20:04 | PAC ---
Date/Time of Note Date/Time of Note DATE: 05/24/19 TIME: 20:03 Post-Anesthesia Notes Post-Anesthesia Note Last documented vital signs Vital Signs Date Temp Pulse Resp B/P (MAP) Pulse Ox O2 O2 Flow FiO2 Time Delivery Rate 05/24/19 102 16 119/74 100 Room Air 17:00 (89) 05/24/19 98.9 16:00 05/24/19 2.0 14:00 Activity: WNL Respiratory function: WNL Cardiovascular function: WNL Mental status: Baseline Pain reasonably controlled: Yes Hydration appropriate: Yes Nausea/Vomiting absent: Yes Comments BT: 98.8 ADAM LOPEZ MD May 24, 2019 20:04
[2019-05-24] MEDS: NORTRIPTYLINE 25 MG CAP PO SCH (21:11)
[2019-05-25] VITALS (20 sets, daily range): BP systolic 88–124; BP diastolic 49–88; PULSE 83–130; RESP 15–25
[2019-05-25] MEDS: PANTOPRAZOLE (EC) 40 MG TAB PO SCH (06:29)
[2019-05-25] MEDS: GABAPENTIN 300 MG CAP PO SCH ×3 (06:29→22:56)
[2019-05-25] MEDS: morphine 4 MG/ML VIAL IV PRN (06:54)
[2019-05-25] MEDS: ACETAMINOPHEN 1000MG/100ML IV 100 ML IVPB PRN (11:41)
--- NOTE | 2019-05-25 12:08 | PN ---
Date/Time of Note Date/Time of Note DATE: 05/25/19 TIME: 12:05 Assessment/Plan Lines/Catheters IV Catheter Type (from Nrsg): Peripheral IV Garcia in Place (from Nrsg): Yes Assessment/Plan Chief Complaint/Hosp Course POD # 1 s/p VPS revision. Doing well. Post-op CT shows more symmetry and normal sized ventricles. Stable for D/C from ICU, and home today if medical issues cleared. call for f/u in office in 10-14 days. Subjective 24 Hr Interval Summary Patient doing well. Only reports incisional pain. Pre-op headaches have r esolved. Exam/Review of Systems Vital Signs Vitals Vital Signs Date Temp Pulse Resp B/P (MAP) Pulse Ox O2 O2 Flow FiO2 Time Delivery Rate 05/25/19 100.4 11:41 05/25/19 125 21 104/61 100 10:00 (75) 05/25/19 Room Air 07:00 05/24/19 2.0 14:00 Intake and Output 05/24/19 05/24/19 05/25/19 1515:00 23:00 07:00 IntakeIntake Total 1550 ml 1000 ml 950 ml OutputOutput Total 1115 ml 600 ml 1090 ml BalanceBalance 435 ml 400 ml -140 ml Exam Constitutional: alert, oriented Psych: no complaints Head: normocephalic, other (incision c/d/I. ) Neurological: [employer] [facility] II-XII intact, nl mental status, nl speech, nl strength (baseline neurologically.) Results Result Diagram: 05/25/19 0448 05/24/19 0501 CARLA CHEUNG MD May 25, 2019 12:08
[2019-05-25] MEDS: CEFTRIAXONE 1 GM/50 ML (PMX) 50 ML IVPB SCH (12:39)
[2019-05-25] MEDS ORDERED: LACTULOSE 30ML CUP PO PRN (13:00)
[2019-05-25] MEDS ORDERED: LACTULOSE 30ML CUP GTB ONE (13:00)
[2019-05-25] MEDS ORDERED: BISACODYL 10 MG SUPP PR ONE (15:00)
[2019-05-25] MEDS: NORTRIPTYLINE 25 MG CAP PO SCH (22:01)
--- NOTE | 2019-05-25 23:48 | PN ---
Date/Time of Note Date/Time of Note DATE: 05/25/19 TIME: 23:48 Assessment/Plan VTE Prophylaxis Risk score (from [facility])>0 risk: 8 SCD applied (from [facility] [place]): Yes Pharmacological prophylaxis: NA/contraindicated Pharm contraindication: surgical contra Lines/Catheters IV Catheter Type (from [facility] Saline Lock Urinary Cath still in place: No Assessment/Plan Assessment/Plan [facility] 1. Ms. 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 Dr. Romel Portillo performed ventriculostomy placement yesterday, and she is recuperating well with only mild incisional discomfort and no visual change or headache. Eating well with no nausea. Some constipation. 2. Heart rate was elevated overnight, to 140 on telemetry. 3. Mild peripheral edema, history of lower extremity orthopedic surgery 4. Fibromyalgia 5. Mild normochromic, normocytic anemia * Transfer to telemetry upstairs * Continue ceftriaxone (day 4) * Neurology consult had been discussed; will investigate status * Dulcolax suppository for constipation * Continue lactulose * Pantoprazole for GI protection * SCDs for DVT prevention; no LMWH post-operatively * Monitor overnight with possible discharge tomorrow home if stably improved Serge Alejandro MD PhD [phone] Result Diagram: 05/25/19 0448 05/24/19 0501 Results 24hrs Laboratory Tests Test 05/25/19 04:48 White Blood Count 8.0 Red Blood Count 3.58 L Hemoglobin 10.7 L Hematocrit 32.6 L Mean Corpuscular Volume 91.1 Mean Corpuscular Hemoglobin 29.9 Mean Corpuscular Hemoglobin Concent 32.8 Red Cell Distribution Width 13.0 Platelet Count 227 Mean Platelet Volume 9.7 Immature Granulocytes % 0.300 Neutrophils % 57.9 Lymphocytes % 31.4 Monocytes % 6.5 Eosinophils % 3.5 Basophils % 0.4 Nucleated Red Blood Cells % 0.0 Immature Granulocytes # 0.020 Neutrophils # 4.6 Lymphocytes # 2.5 Monocytes # 0.5 Eosinophils # 0.3 Basophils # 0.0 Nucleated Red Blood Cells # 0.0 Subjective 24 Hr Interval Summary Free Text/Dictation Very mild scalp discomfort at operative site, but not headache per se. Constipated with difficulty stooling the past two days. But eating well without nausea. No family/visitors at bedside. Exam/Review of Systems Exam Vitals Vital Signs Date Temp Pulse Resp B/P (MAP) Pulse Ox O2 O2 Flow FiO2 Time Delivery Rate 05/25/19 99.0 83 18 116/74 90 20:00 (88) 05/25/19 Room Air 07:00 05/24/19 2.0 14:00 Intake and Output 05/24/19 05/24/19 05/25/19 1515:00 23:00 07:00 IntakeIntake Total 1550 ml 1000 ml 950 ml OutputOutput Total 1115 ml 600 ml 1090 ml BalanceBalance 435 ml 400 ml -140 ml Exam General: Friendly, comfortable, sitting on commode HEENT: Clean, dry incision. PERRL, EOMI. normal conjunctiva. Moist oral mucosa with no thrush. Chest: Clear to auscultation bilaterally. CVS: Regular rhythm, normal rate, no murmur, good peripheral perfusion Abd: Soft, non-distended, normal bowel sounds, non-tender. Skin: No rash : No CVA tenderness, no Garcia in place Ext: Mild lower extremity edema, no calf tenderness Neur: Alert and oriented, cranial nerves intact, motor 5/5 bilaterally, toes downgoing. Normal affect, memory and speech Results Results 24hrs Laboratory Tests Test 05/25/19 04:48 White Blood Count 8.0 Red Blood Count 3.58 L Hemoglobin 10.7 L Hematocrit 32.6 L Mean Corpuscular Volume 91.1 Mean Corpuscular Hemoglobin 29.9 Mean Corpuscular Hemoglobin Concent 32.8 Red Cell Distribution Width 13.0 Platelet Count 227 Mean Platelet Volume 9.7 Immature Granulocytes % 0.300 Neutrophils % 57.9 Lymphocytes % 31.4 Monocytes % 6.5 Eosinophils % 3.5 Basophils % 0.4 Nucleated Red Blood Cells % 0.0 Immature Granulocytes # 0.020 Neutrophils # 4.6 Lymphocytes # 2.5 Monocytes # 0.5 Eosinophils # 0.3 Basophils # 0.0 Nucleated Red Blood Cells # 0.0 Medications Medication Current Medications Nortriptyline HCl (Aventyl) 75 mg HS PO Last administered on 05/25/19at 22:01; Admin Dose 75 MG; Start 05/21/19 at 21:00 Gabapentin (Neurontin) 600 mg Q8H PO Last administered on 05/25/19at 22:56; Admin Dose 600 MG; Start 05/20/19 at 23:00 Acetaminophen (Tylenol Tab) 650 mg Q4H PRN PO pain/fever Last administered on 05/23/19at 12:33; Admin Dose 650 MG; Start 05/20/19 at 23:00 Ondansetron HCl (Zofran Inj) 4 mg Q4H PRN IV nausea; Start 05/20/19 at 23:00 Morphine Sulfate (morphine) 4 mg Q4H PRN IV severe pain 7-10 Last administered on 05/25/19at 06:54; Admin Dose 4 MG; Start 05/20/19 at 23:00 Pantoprazole (Protonix Tab) 40 mg DAILY@06 PO Last administered on 05/25/19at 06:29; Admin Dose 40 MG; Start 05/22/19 at 06:00 Ceftriaxone Sodium 50 ml @ 100 mls/hr Q24H IVPB Last administered on 05/25/19at 12:39; Admin Dose 100 MLS/HR; Start 05/22/19 at 12:30 Acetaminophen/ Hydrocodone Bitart ([place] (7.5-325)) 1 tab Q6H PRN PO MODERATE PAIN LEVEL 4-6; Start 05/24/19 at 17:00 Lactulose (Enulose) 20 gm DAILY PRN PO CONSTIPATION; Start 05/25/19 at 13:00 ROBERTO CARLOS ALEJANDRO M.D. May 25, 2019 23:48
[2019-05-26] VITALS: BP 119/81; PULSE 127; RESP 18
[2019-05-26] MEDS: HYDROCODONE/APAP (7.5/325) TAB PO PRN ×2 (00:14→07:38)
[2019-05-26 03:25] VITALS: Ht 147.3 cm; Wt 65.0 kg
[2019-05-26 04:00] VITALS: BP 106/56; PULSE 111; RESP 18
[2019-05-26] MEDS: GABAPENTIN 300 MG CAP PO SCH ×3 (06:35→22:42)
[2019-05-26] MEDS: PANTOPRAZOLE (EC) 40 MG TAB PO SCH (06:35)
[2019-05-26 07:45] VITALS: BP 107/63; PULSE 106; RESP 18
[2019-05-26 12:08] VITALS: BP 145/64; PULSE 76; RESP 18
--- NOTE | 2019-05-26 13:24 | PN ---
Date/Time of Note Date/Time of Note DATE: 05/26/19 TIME: 13:19 Assessment/Plan Lines/Catheters IV Catheter Type (from Nrs): Saline Lock Garcia in Place (from Nrs): No Assessment/Plan Chief Complaint/Hosp Course POD # 2 s/p VPS revision. Patient appears to be neurologically stable. I believe she has significant anxiety about leaving. Post-op CT shows more symmetry and normal sized ventricles. She is complaining about a rash on her right side- not diffuse. Could be reacting to prep from surgery but unlikely related to shunt as only incision opened and no distal valve change. Also very early for surgical infection and patient already on Abx for UTI. Will get another CT in am, suspect patient adjusting to new equilibrium, may have adapted to lower pressure from overdrainage. If ventricles look bigger will lower shunt valve setting, if same, will keep setting for now. Subjective 24 Hr Interval Summary Patient is very anxious. Complaining of headache again, unclearly incision, all right sided. Denies nausea or vomiting. Exam/Review of Systems Vital Signs Vitals Vital Signs Date Temp Pulse Resp B/P (MAP) Pulse Ox O2 O2 Flow FiO2 Time Delivery Rate 05/26/19 98.0 76 18 145/64 96 12:08 (91) 05/25/19 Room Air 07:00 05/24/19 2.0 14:00 Intake and Output 05/25/19 05/25/19 05/26/19 1515:00 23:00 07:00 IntakeIntake Total 1360 ml 510 ml 1120 ml OutputOutput Total 1525 ml 1550 ml 1700 ml BalanceBalance -165 ml -1040 ml -580 ml Exam Constitutional: alert, oriented, well developed Psych: anxiety Head: normocephalic, other (incisions dress. C/D/I no swelling or drainage. ) Neurological: LABORER MINE II-XII intact, nl mental status, nl speech, nl strength, other (basline motor exam) Results Result Diagram: 05/25/19 0448 05/24/19 0501 CARLA CHEUNG MD May 26, 2019 13:24
[2019-05-26] MEDS: CEFTRIAXONE 1 GM/50 ML (PMX) 50 ML IVPB SCH (15:07)
--- NOTE | 2019-05-26 15:43 | PN ---
Date/Time of Note Date/Time of Note DATE: 05/26/19 TIME: 15:43 Assessment/Plan VTE Prophylaxis Risk score (from Ns)>0 risk: 8 SCD applied (from [facility]): Yes Pharmacological prophylaxis: NA/contraindicated Pharm contraindication: surgical contra Lines/Catheters IV Catheter Type (from [facility] Saline Lock Urinary Cath still in place: No Assessment/Plan Assessment/Plan [facility] 1. Ms. Escamilla is a 34-year-old woman with a history of spina bifida, s/p PROSECUTING ATTORNEY- shunt placement as a child who presented with [id number] headaches. Dr. Romel Portillo performed ventriculostomy placement two days ago. Concerned about a rash neighboring the incision and extending down the right neck/chest/abdomen. More faint now. Mild discomfort, but with no visual change or headache. Eating well with no nausea. Constipation appears resolved. 2. Tachycardia improved. 3. Moderate peripheral edema, with a history of dorsiflexor tendon release in the anterior legs as a child 4. Fibromyalgia 5. Mild normochromic, normocytic anemia * Monitor on telemetry * Continue ceftriaxone (day 5) * Appreciate Dr. Portillo's detailed note, with plan to repeat CT scan tomorrow * Trial of Voltaren gel applied to the painful area on her neck * Continue lactulose * Pantoprazole for GI protection * SCDs for DVT prevention; no LMWH post-operatively * Disposition: plan to go home once recuperation is well underway Serge Alejandro MD PhD [phone] Result Diagram: 05/25/19 0448 05/24/19 0501 Subjective 24 Hr Interval Summary Free Text/Dictation Alex Arevalo at the bedside. Stooling frequently since yesterday. Complaining of a non-pruritic rash extending down the right neck, chest, and onto the right side of the abdomen, which she said was painful. Also more somnolent today. No headache per se. No visual change. Exam/Review of Systems Exam Vitals Vital Signs Date Temp Pulse Resp B/P (MAP) Pulse Ox O2 O2 Flow FiO2 Time Delivery Rate 05/26/19 98.0 76 18 145/64 96 12:08 (91) 05/25/19 Room Air 07:00 05/24/19 2.0 14:00 Intake and Output 05/25/19 05/25/19 05/26/19 1515:00 23:00 07:00 IntakeIntake Total 1360 ml 510 ml 1120 ml OutputOutput Total 1525 ml 1550 ml 1700 ml BalanceBalance -165 ml -1040 ml -580 ml Exam General: Friendly, but uncomfortable-appearing HEENT: Clean, dry incisions. PERRL, EOMI, but with multi-beat lateral gaze nystagmus. Normal conjunctiva. Moist oral mucosa with no thrush. Chest: Clear to auscultation bilaterally. CVS: Regular rhythm, normal rate, no murmur, good peripheral perfusion Abd: Soft, non-distended, normal bowel sounds, non-tender. Skin: Faint urticarial-type rash in a band down the right neck. Less evident on the right abdomen. : No Garcia catheter in place Ext: Moderate lower extremity edema, no calf tenderness Neur: Alert and oriented, cranial nerves intact, motor 5/5 bilaterally in arms and proximal hip flexors. But she is unable to move her ankles. Toes downgoing. Normal affect, memory and speech Medications Medication Current Medications Nortriptyline HCl (Aventyl) 75 mg HS PO Last administered on 05/25/19at 22:01; Admin Dose 75 MG; Start 05/21/19 at 21:00 Gabapentin (Neurontin) 600 mg Q8H PO Last administered on 05/26/19at 14:49; Admin Dose 600 MG; Start 05/20/19 at 23:00 Acetaminophen (Tylenol Tab) 650 mg Q4H PRN PO pain/fever Last administered on 05/23/19at 12:33; Admin Dose 650 MG; Start 05/20/19 at 23:00 Ondansetron HCl (Zofran Inj) 4 mg Q4H PRN IV nausea; Start 05/20/19 at 23:00 Morphine Sulfate (morphine) 4 mg Q4H PRN IV severe pain 7-10 Last administered on 05/25/19at 06:54; Admin Dose 4 MG; Start 05/20/19 at 23:00 Pantoprazole (Protonix Tab) 40 mg DAILY@06 PO Last administered on 05/26/19at 06:35; Admin Dose 40 MG; Start 05/22/19 at 06:00 Ceftriaxone Sodium 50 ml @ 100 mls/hr Q24H IVPB Last administered on 05/26/19at 15:07; Admin Dose 100 MLS/HR; Start 05/22/19 at 12:30 Acetaminophen/ Hydrocodone Bitart ([place] (7.5-325)) 1 tab Q6H PRN PO MODERATE PAIN LEVEL 4-6 Last administered on 05/26/19at 07:38; Admin Dose 1 TAB; Start 05/24/19 at 17:00 Lactulose (Enulose) 20 gm DAILY PRN PO CONSTIPATION; Start 05/25/19 at 13:00 ROBERTO CARLOS ALEJANDRO M.D. May 26, 2019 15:43
[2019-05-26 16:19] VITALS: BP 103/58; PULSE 115; RESP 18
[2019-05-26] MEDS: DICLOFENAC SODIUM 1% GEL 100 GM TUBE TP SCH ×2 (17:57→20:46)
[2019-05-26 20:00] VITALS: BP 101/66; PULSE 123; RESP 19
[2019-05-26] MEDS: NORTRIPTYLINE 25 MG CAP PO SCH (20:46)
[2019-05-27] VITALS: BP 100/62; PULSE 125; RESP 19
[2019-05-27] MEDS: HYDROCODONE/APAP (7.5/325) TAB PO PRN ×2 (00:40→17:31)
[2019-05-27 04:00] VITALS: BP 109/59; PULSE 144; RESP 19
--- NOTE | 2019-05-27 05:32 | HKNOTE ---
DATE OF SERVICE: 05/26/2019 HISTORY OF PRESENT ILLNESS: The patient is [id number]-rdm, status post CARDIOTHORACIC ICU RN shunt on top of spina bifida and this was done at . The patient had a revision of the shunt at age of [age]. The patient u sed to follow up in the [facility] in which the last year she started to have headaches, in which the patient went to [facility] close to her house a year ago, in which she had evaluation over there with the diagnosis of migraine headaches and sent the patient home. The patient said she has h ad the headaches that lasted for hours, started suddenly goes gradually associated, with spot in fron t of her eye when the headache is severe. The patient said the headache was improved by Tylenol, acc ording to her history, and she did not try any other medication. The patient was admitted to [facility] where she had a revision of the shunt and the patient, she says the headache wa s improved after the shunt revision. PAST MEDICAL HISTORY: In the form of spina bifida with myelomeningocele was closed at [facility], history of fibromyalgia. ALLERGIES: FROM PENICILLIN. PHYSICAL EXAMINATION: GENERAL: Patient is alert, awake, oriented for time, place, and person. Normal speech and normal la nguage. CRANIAL NERVES: Cranial nerve II: Pupils equal on both sides, reactive to light. Oral III, IV and : Extraocular muscles are intact without nystagmus. Cranial nerve V: Equal sensation to face. C ranial nerve VII: Symmetrical face. Cranial nerve VIII: Equal hearing bilaterally. Cranial IX and X: Elevates palate. Cranial nerve XI: Elevates shoulder 5/5. Cranial nerve XII: With straight t ongue. MOTOR: Equal on both sides. Sensation equal for light touch and temperature. COORDINATION: Rfazkh-lo-exfm test intact. HEART: Regular rate and rhythm. LUNGS: Equal breath sounds. ABDOMEN: Soft, relaxed, nondistended, nontender. ASSESSMENT AND PLAN: 1. The patient is 62-[id number]-bcs, status post headache with revision of CARDIOTHORACIC ICU RN shunt in which the patient had improvement after the revision. 2. Possibility of underlying migraine headaches in which the patient states that Tylenol did help he r headache prior to surgery, so we will continue the same medication, and will follow up the patient in outpatient clinic for more evaluation and treatment. 3. The patient on also Neurontin 600 mg at bedtime. 4. Gastritis protection with the patient on Protonix 40 mg once a day. 5. Nausea protection. Keep the patient on Zofran 4 mg every 4 hours as needed. Again, thank you for asking me to see the patient with you. Dictated By: BLANCA HURTADO/BITA Conf#: [id number] DID#: [id number]
[2019-05-27] MEDS: GABAPENTIN 300 MG CAP PO SCH ×3 (06:15→22:14)
[2019-05-27] MEDS: PANTOPRAZOLE (EC) 40 MG TAB PO SCH (06:16)
[2019-05-27 07:39] VITALS: BP 137/81; PULSE 138; RESP 18
[2019-05-27] MEDS: DICLOFENAC SODIUM 1% GEL 100 GM TUBE TP SCH (09:00)
--- NOTE | 2019-05-27 10:13 | PN ---
Date/Time of Note Date/Time of Note DATE: 05/27/19 TIME: 10:10 Subjective Complains of palpitations. No chest pain. No shortness of breath. Objective Vitals Vital Signs Date Temp Pulse Resp B/P (MAP) Pulse Ox O2 O2 Flow FiO2 Time Delivery Rate 05/27/19 99.3 138 18 137/81 98 07:39 (99) 05/25/19 Room Air 07:00 05/24/19 2.0 14:00 Intake and Output 05/26/19 05/26/19 05/27/19 1515:00 23:00 07:00 IntakeIntake Total 240 ml 1090 ml 120 ml OutputOutput Total 450 ml 600 ml BalanceBalance 240 ml 640 ml -480 ml Neck supple Clear to auscultation bilaterally Rapid rate. No murmurs or gallops Soft nontender nondistended normoactive bowel sounds 3+ pitting edema bilaterally Nonfocal Results Result Diagram: 05/27/19 0503 05/27/19 0503 Medications Medications Current Medications Nortriptyline HCl (Aventyl) 75 mg HS PO Last administered on 05/26/19at 20:46; Admin Dose 75 MG; Start 05/21/19 at 21:00 Gabapentin (Neurontin) 600 mg Q8H PO Last administered on 05/27/19at 06:15; Admin Dose 600 MG; Start 05/20/19 at 23:00 Acetaminophen (Tylenol Tab) 650 mg Q4H PRN PO pain/fever Last administered on 05/23/19at 12:33; Admin Dose 650 MG; Start 05/20/19 at 23:00 Ondansetron HCl (Zofran Inj) 4 mg Q4H PRN IV nausea; Start 05/20/19 at 23:00 Morphine Sulfate (morphine) 4 mg Q4H PRN IV severe pain 7-10 Last administered on 05/25/19at 06:54; Admin Dose 4 MG; Start 05/20/19 at 23:00 Pantoprazole (Protonix Tab) 40 mg DAILY@06 PO Last administered on 05/27/19at 06:16; Admin Dose 40 MG; Start 05/22/19 at 06:00 Ceftriaxone Sodium 50 ml @ 100 mls/hr Q24H IVPB Last administered on 05/26/19at 15:07; Admin Dose 100 MLS/HR; Start 05/22/19 at 12:30 Acetaminophen/ Hydrocodone Bitart ([place] (7.5-325)) 1 tab Q6H PRN PO MODERATE PAIN LEVEL 4-6 Last administered on 05/27/19at 00:40; Admin Dose 1 TAB; Start 05/24/19 at 17:00 Lactulose (Enulose) 20 gm DAILY PRN PO CONSTIPATION; Start 05/25/19 at 13:00 Diclofenac Sodium (Voltaren 1% Gel) 2 gm QID TP Last administered on 05/26/19at 20:46; Admin Dose 2 GM; Start 05/26/19 at 17:00 Simethicone (Mylicon) 80 mg Q4 PRN PO DISTENSION/GAS/BLOATING Last administered on 05/27/19at 09:37; Admin Dose 80 MG; Start 05/27/19 at 08:00 VTE Prophylaxis Risk score (from Ns)>0 risk: 2 SCD applied (from Ns): Yes Lines/Catheters IV Catheter Type: Saline Lock Garcia in Place: No Assessment/Plan Assessment/Plan 34-year-old female 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 Patient is stable for discharge from neurosurgical standpoint PAULY MARTINO MD May 27, 2019 10:13
[2019-05-27] MEDS: FUROSEMIDE 20 MG INJ IV SCH ×2 (11:29→17:30)
[2019-05-27] MEDS ORDERED: BETAMETHASONE 0.05% 15 GM OINT TOP SCH (11:30)
[2019-05-27 11:41] VITALS: BP 120/82; PULSE 125; RESP 18
[2019-05-27] MEDS: BETAMETHASONE 0.05% 15 GM OINT TOP SCH ×2 (12:00→21:17)
--- NOTE | 2019-05-27 12:09 | PN ---
Date/Time of Note Date/Time of Note DATE: 05/27/19 TIME: 12:07 Assessment/Plan Lines/Catheters IV Catheter Type (from Nrs): Saline Lock Garcia in Place (from Nrs): No Assessment/Plan Chief Complaint/Hosp Course POD # 3 s/p VPS revision. Patient appears to be neurologically stable, clinically improved. CT performed today shows no significant change in ventricular size. Patient stable for D/C, will f/u in office in 08-[address] scan to assess. Subjective 24 Hr Interval Summary The patient states that her headaches are better today. Denies nausea or vomiting. She still reports a rash on the left side of her body. Exam/Review of Systems Vital Signs Vitals Vital Signs Date Temp Pulse Resp B/P (MAP) Pulse Ox O2 O2 Flow FiO2 Time Delivery Rate 05/27/19 98.4 125 18 120/82 100 11:41 (95) 05/25/19 Room Air 07:00 05/24/19 2.0 14:00 Intake and Output 05/26/19 05/26/19 05/27/19 1515:00 23:00 07:00 IntakeIntake Total 240 ml 1090 ml 120 ml OutputOutput Total 450 ml 600 ml BalanceBalance 240 ml 640 ml -480 ml Exam Constitutional: alert, oriented, well developed Psych: nl mood/affect Head: other (incisions C/D/I) Neurological: AUDIOLOGIST II-XII intact, nl mental status, nl speech (baseline motor exam) Results Result Diagram: 05/27/19 0503 05/27/19 0503 CARLA CHEUNG MD May 27, 2019 12:09
--- NOTE | 2019-05-27 13:15 | CONS ---
Assessment/Plan Assessment/Plan Hospital Course (Demo Recall) Tachycardia Volume overload, likely decompensated congestive heart failure SUPERVIS[employer] shunt revision Patient with tachycardia noted on telemetry, sinus tach with heart rates in the 120s to 150s. Patient tells me she has a history of known elevated heart rates in the past with frequent palpitations. 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 Patient underwent revision of previous SUPER[employer] shunt. Cardiology cons ultation was requested for tachycardia. Patient does complain of feeling palpitations. She is had these symptoms of palpitation going on for months and come and go over the past few years. Denies any chest pain does not but does complain of shortness of breath currently. She does complain of body swelling and feeling tired and fatigued. She denies any exertional chest pain. 12 point review of systems was performed with all pertinent positives and negatives mentioned above and all else is negative Past Medical History Hydrocephalus Spina bifida Home Meds Reported Medications Gabapentin* (Gabapentin*) 600 Mg Tablet, 1800 MG PO QHS, #90 TAB 05/20/19 Nortriptyline Hcl* (Nortriptyline Hcl*) 75 Mg Capsule, 75 MG PO HS, TAB 05/20/19 Discontinued Reported Medications [Fibromyalgia Meds] No Conflict Check 11/28/12 [Savella] No Conflict Check 11/28/12 Medications Current Medications Nortriptyline HCl (Aventyl) 75 mg HS PO Last administered on 05/26/19at 20:46; Admin Dose 75 MG; Start 05/21/19 at 21:00 Gabapentin (Neurontin) 600 mg Q8H PO Last administered on 05/27/19at 06:15; Admin Dose 600 MG; Start 05/20/19 at 23:00 Acetaminophen (Tylenol Tab) 650 mg Q4H PRN PO pain/fever Last administered on 05/23/19at 12:33; Admin Dose 650 MG; Start 05/20/19 at 23:00 Ondansetron HCl (Zofran Inj) 4 mg Q4H PRN IV nausea; Start 05/20/19 at 23:00 Morphine Sulfate (morphine) 4 mg Q4H PRN IV severe pain 7-10 Last administered on 05/25/19at 06:54; Admin Dose 4 MG; Start 05/20/19 at 23:00 Pantoprazole (Protonix Tab) 40 mg DAILY@06 PO Last administered on 05/27/19at 06:16; Admin Dose 40 MG; Start 05/22/19 at 06:00 Acetaminophen/ Hydrocodone Bitart ([place] (7.5-325)) 1 tab Q6H PRN PO MODERATE PAIN LEVEL 4-6 Last administered on 05/27/19at 00:40; Admin Dose 1 TAB; Start 05/24/19 at 17:00 Lactulose (Enulose) 20 gm DAILY PRN PO CONSTIPATION; Start 05/25/19 at 13:00 Simethicone (Mylicon) 80 mg Q4 PRN PO DISTENSION/GAS/BLOATING Last administered on 05/27/19at 09:37; Admin Dose 80 MG; Start 05/27/19 at 08:00 Furosemide (Lasix) 20 mg BID DIURETICS IV Last administered on 05/27/19at 11:29; Admin Dose 20 MG; Start 05/27/19 at 10:30 Betamethasone Dipropionate (Betamethasone 0.05% Oint) 1 applic BID TOP ; Start 05/27/19 at 12:00 Cephalexin (Keflex) 500 mg Q8 PO ; Start 05/27/19 at 14:00 Allergies: Coded Allergies: Penicillins (Verified Allergy, Unknown, 05/20/19) Past Surgical History Including but not limited to SUPERVISOR [employer] shunt Family History Significant Family History: no pertinent family hx Social History Alcohol Use: sober Smoking Status: Former smoker Drug Use: other (Former user of methamphetamine and cocaine, quit in 2016) Exam/Review of Systems Vital Signs Vitals Vital Signs Date Temp Pulse Resp B/P (MAP) Pulse Ox O2 O2 Flow FiO2 Time Delivery Rate 05/27/19 98.4 125 18 120/82 100 11:41 (95) 05/25/19 Room Air 07:00 05/24/19 2.0 14:00 Intake and Output 05/26/19 05/26/19 05/27/19 1515:00 23:00 07:00 IntakeIntake Total 240 ml 1090 ml 120 ml OutputOutput Total 450 ml 600 ml BalanceBalance 240 ml 640 ml -480 ml Exam Constitutional: alert, oriented (No apparent distress, no dyspnea with speaking) Head: other (Bandage on head) Respiratory: other (Coarse breath sounds bilaterally, no wheezing) Cardiovascular: regular rate and rhythm (Tachycardic, S1-S2 heard) Gastrointestinal: soft, non-tender, bowel sounds Extremities: edema Labs Result Diagram: 05/27/19 0503 05/27/19 0503 Results 24hrs Laboratory Tests Test 05/27/19 05:03 White Blood Count 6.3 # Red Blood Count 3.88 L Hemoglobin 11.5 L Hematocrit 36.0 L Mean Corpuscular Volume 92.8 Mean Corpuscular Hemoglobin 29.6 Mean Corpuscular Hemoglobin Concent 31.9 L Red Cell Distribution Width 13.2 Platelet Count 273 # Mean Platelet Volume 9.6 Immature Granulocytes % 0.200 Neutrophils % 66.4 Lymphocytes % 23.3 Monocytes % 7.4 Eosinophils % 2.4 Basophils % 0.3 Nucleated Red Blood Cells % 0.0 Immature Granulocytes # 0.010 Neutrophils # 4.2 Lymphocytes # 1.5 Monocytes # 0.5 Eosinophils # 0.2 Basophils # 0.0 Nucleated Red Blood Cells # 0.0 Sodium Level 141 Potassium Level 4.3 Chloride Level 107 Carbon Dioxide Level 27 Anion Gap 7 Blood Urea Nitrogen 10 Creatinine 0.51 Est Glomerular Filtrat Rate mL/min > 60 Glucose Level 102 Calcium Level 8.7 Total Bilirubin 0.3 Direct Bilirubin 0.00 Indirect Bilirubin 0.3 Aspartate Amino Transf (AST/SGOT) 42 Alanine Aminotransferase (ALT/SGPT) 66 Alkaline Phosphatase 89 Total Protein 6.3 Albumin 3.4 Globulin 2.90 Albumin/Globulin Ratio 1.17 Medications Medications Current Medications Nortriptyline HCl (Aventyl) 75 mg HS PO Last administered on 05/26/19at 20:46; Admin Dose 75 MG; Start 05/21/19 at 21:00 Gabapentin (Neurontin) 600 mg Q8H PO Last administered on 05/27/19at 06:15; Admin Dose 600 MG; Start 05/20/19 at 23:00 Acetaminophen (Tylenol Tab) 650 mg Q4H PRN PO pain/fever Last administered on 05/23/19at 12:33; Admin Dose 650 MG; Start 05/20/19 at 23:00 Ondansetron HCl (Zofran Inj) 4 mg Q4H PRN IV nausea; Start 05/20/19 at 23:00 Morphine Sulfate (morphine) 4 mg Q4H PRN IV severe pain 7-10 Last administered on 05/25/19 06:54; Admin Dose 4 MG; Start 05/20/19 at 23:00 Pantoprazole (Protonix Tab) 40 mg DAILY@06 PO Last administered on 05/27/19at 06:16; Admin Dose 40 MG; Start 05/22/19 at 06:00 Acetaminophen/ Hydrocodone Bitart ([place] (7.5-325)) 1 tab Q6H PRN PO MODERATE PAIN LEVEL 4-6 Last administered on 05/27/19at 00:40; Admin Dose 1 TAB; Start 05/24/19 at 17:00 Lactulose (Enulose) 20 gm DAILY PRN PO CONSTIPATION; Start 05/25/19 at 13:00 Simethicone (Mylicon) 80 mg Q4 PRN PO DISTENSION/GAS/BLOATING Last administered on 05/27/19at 09:37; Admin Dose 80 MG; Start 05/27/19 at 08:00 Furosemide (Lasix) 20 mg BID DIURETICS IV Last administered on 05/27/19at 11:29; Admin Dose 20 MG; Start 05/27/19 at 10:30 Betamethasone Dipropionate (Betamethasone 0.05% Oint) 1 applic BID TOP ; Start 05/27/19 at 12:00 Cephalexin (Keflex) 500 mg Q8 PO ; Start 05/27/19 at 14:00 Dimitri Bhatti DO May 27, 2019 13:15
--- NOTE | 2019-05-27 13:32 | RADRPT ---
Echocardiogram Report Patient Name: Everardo BUSTOS ID: [id number] : 1985 (34y 4m)Study Date: 05/27/2019 11:04:39 AM Gender: FAccession #: [id number] Tech: Floridalma Gamez [facility] Location: 8 Ref.Physician: PAULY MATRINO Height(Cm): BSA: Weight(Kg): Quality: AdequateOrder Physician: PAULY MARTINO Account #: Procedures: Echocardiographic Report: Transthoracic echocardiogram with complete 2D, M-Mode, and doppler examination. Indications: Tachycardia. Measurements: 2D/M Mode Doppler Measurement Value Normal Range Measurement Value Normal Range LVIDd 2D 4.1 [ 3.8 - 5.2 ] cm AV Peak Jasson 1.8 [ 100.0 - 170.0 ] cm/sec LVIDs 2D 2.5 [ 2.2 - 3.5 ] cm AV Peak PG 13.0 [ 2.0 - 9.0 ] mmHg LVPWd 2D 0.7 [ 0.6 - 0.9 ] cm LVOT Peak Jasson 1.1 [ 70.0 - 110.0 ] cm/sec IVSd 2D 0.8 [ 0.6 - 0.9 ] cm LVOT Peak PG 5.0 [ 2.0 - 6.0 ] mmHg AoR Diam 2D 2.3 [ 2.3 - 3.1 ] cm TR Peak Jasson 2.4 [ 100.0 - 280.0 ] cm/sec EDV 2D 72.5 [ 46.0 - 106.0 ] ml TR Peak PG 23.0 mmHg ESV 2D 21.2 [ 14.0 - 42.0 ] ml RVSP 26.0 [ 10.0 - 36.0 ] mmHg EF 2D 70.8 [ 54.0 - 74.0 ] percent RA Pressure 3.0 mmHg LA Dimen 2D 2.6 [ 2.7 - 3.8 ] cm Findings: Left Ventricle: Normal left ventricular systolic function. Normal left ventricular cavity size. Normal left ventricular wall thickness. Ejection fraction is visually estimated at 60-65 %. Right Ventricle: Normal right ventricular size. Normal right ventricular systolic function. Left Atrium: The left atrium is normal in size. Right Atrium: The right atrium is normal in size. Mitral Valve: Normal appearance and function of the mitral valve with trace physiologic regurgitation. Aortic Valve: Normal appearance of the aortic valve. No significant aortic stenosis or insufficiency. Tricuspid Valve: Normal appearance of the tricuspid valve. The estimated Peak RVSP is 26 mmHg. There is trace tricuspid regurgitation. Pulmonic Valve: Pulmonic valve not well visualized. Pericardium: Normal pericardium with no significant pericardial effusion. Aorta: Normal aortic root. IVC: Normal size and normal respiratory collapse consistent with normal right atrial pressure. Conclusions: Normal left ventricular systolic function. Normal left ventricular cavity size. Normal left ventricular wall thickness. Ejection fraction is visually estimated at 60-65 %. Normal right ventricular size. Normal right ventricular systolic function. No significant valvular stenosis or regurgitation seen. Normal pericardium with no significant pericardial effusion. Electronically Signed By: Dimitri Bhatti 2019-05-27 13:31:25 PDT
[2019-05-27] MEDS ORDERED: CEPHALEXIN 500 MG CAP PO SCH (14:00)
[2019-05-27] MEDS: CEPHALEXIN 250 MG CAP PO SCH ×2 (14:41→21:15)
[2019-05-27] MEDS: morphine 4 MG/ML VIAL IV PRN ×2 (15:36→21:18)
[2019-05-27 15:41] VITALS: BP 114/74; PULSE 131; RESP 18
[2019-05-27 20:09] VITALS: BP 125/83; PULSE 142; RESP 18
[2019-05-27] MEDS: NORTRIPTYLINE 25 MG CAP PO SCH (21:14)
[2019-05-27] MEDS ORDERED: SOD CHLORIDE 0.9% 100 ML ONE (22:36)
[2019-05-27] MEDS ORDERED: IOHEXOL 300MG/ML 150 ML BTL ONE (22:36)
[2019-05-28 00:23] VITALS: BP 100/62; PULSE 125; RESP 18
[2019-05-28] MEDS: CEPHALEXIN 250 MG CAP PO SCH ×3 (05:30→19:47)
[2019-05-28] MEDS: PANTOPRAZOLE (EC) 40 MG TAB PO SCH (05:30)
[2019-05-28] MEDS: FUROSEMIDE 20 MG INJ IV SCH ×2 (05:41→17:37)
[2019-05-28 06:19] VITALS: BP 109/58; PULSE 121; RESP 18
[2019-05-28 07:46] VITALS: BP 98/57; PULSE 119; RESP 16
[2019-05-28] MEDS: GABAPENTIN 300 MG CAP PO SCH ×3 (08:26→19:48)
[2019-05-28] MEDS: BETAMETHASONE 0.05% 15 GM OINT TOP SCH (08:27)
[2019-05-28] MEDS: HYDROCODONE/APAP (7.5/325) TAB PO PRN (08:30)
[2019-05-28] MEDS ORDERED: GABA300C16 PO (10:01)
[2019-05-28] MEDS ORDERED: BTM.05O15 TOP (10:01)
--- NOTE | 2019-05-28 10:02 | PDOCDIS ---
Discharge Instructions CONDITION [id number] Patient Condition: [id number] Good HOME CARE INSTRUCTIONS: [id number] Diet Instructions: [id number] Regular ACTIVITY: [id number] Activity Restrictions: Nonte2s Slowly Increase Activity FOLLOW UP/APPOINTMENTS Follow-up Plan pcp [address] Portillo 2 weeks PAULY MARTINO MD May 28, 2019 10:02
[2019-05-28] MEDS: ACETAMINOPHEN 325 MG TAB PO PRN (10:41)
[2019-05-28 11:27] VITALS: BP 100/65; PULSE 113; RESP 16
--- NOTE | 2019-05-28 12:53 | DS ---
DATE OF ADMISSION: 05/20/2019 DATE OF DISCHARGE: 05/28/2019 DISCHARGE DIAGNOSES: A 34-year-old female with: 1. RAMP AGENT shunt malfunction. 2. Status post ventriculostomy placement. 3. Status post RAMP AGENT shunt revision. 4. Spina bifida. 5. Neurogenic bladder. 6. Physiologic tachycardia. HOSPITAL COURSE: A 34-year-old female with history of spina bifida, status post RAMP AGENT shunt placement 2 8 years prior to admission and presented to Emergency Room with complaint of headaches. Brain MRI sh owed a right parietal post-ventriculostomy catheter placement. There was no evidence of acute infarc t or any acute intracranial finding. Patient initially underwent ventriculostomy placement. She was then taken to the operating room by Dr. Portillo. Patient was found to have a RAMP AGENT shunt malfunction. The valve was broken and had to be revised. There were no intraoperative or postoperative complicat ions. The patient was found to have E. coli urinary tract infection. She has a neurogenic bladder a nd has a straight cath at home. She was treated with IV Rocephin x1 week. One out of 2 blood cultur e bottles grew coag-negative staph. This was thought to be a contaminant. The patient had postoperative tachycardia. She was seen in consultation by Dr. Bhatti. CT pulmonary angiogram did not show any evidence of PE. No other abnormalities were noted. Bilateral lower extr emity venous Doppler was also negative for DVT. The patient had a 2D echo. This will be reviewed by Dr. Bhatti prior to her discharge. The patient is otherwise in a stable condition for discharge. MEDICATIONS: On discharge: 1. Gabapentin 600 mg p.o. q.8h. 2. Nortriptyline 75 mg p.o. at bedtime. 3. Beclomethasone ointment to be applied to affected area twice daily. PLAN: Follow up with PCP in 1 week. Follow up with Dr. Portillo in 2 weeks. Dictated By: PAULY GREENE/BITA Conf#: [id number] DID#: [id number] CC: ERIK BHATTI DO; JUAN CHRISTINE MD; CARLA PORTILLO MD;*End*
[2019-05-28 16:00] VITALS: BP 93/61; PULSE 108; RESP 16
--- NOTE | 2019-05-28 18:39 | CONS ---
Assessment/Plan Assessment/Plan Hospital Course (Demo Recall) Tachycardia Volume overload Preserved left ventricular ejection fraction [employer] shunt revision Given elevated d-dimer, CT chest was done with no evidence of pulmonary emboli, no evidence of DVT on venous ultrasound TSH within normal limits Chest x-ray with no significant volume overload, BNP is not elevated Heart rate trend has been improving without any medical intervention. Would not use any AV gregory blocking agents at the current time. Sinus tachycardia likely secondary to multiple medical issues going on currently. DC planning Consultation Date/Type/Reason Admit Date/Time May 20, 2019 at 20:46 Initial Consult Date Type of Consult Cardiology Date/Time of Note DATE: 05/28/19 TIME: 18:37 24 HR Interval Summary Free Text/Dictation Less palpitations, denies shortness of breath Exam/Review of Systems Vital Signs Vitals Vital Signs Date Temp Pulse Resp B/P (MAP) Pulse Ox O2 O2 Flow FiO2 Time Delivery Rate 05/28/19 98.7 108 16 93/61 (72) 97 Room Air 16:00 05/24/19 2.0 14:00 Intake and Output 05/27/19 05/27/19 05/28/19 1515:00 23:00 07:00 IntakeIntake Total 1000 ml 100 ml OutputOutput Total 1700 ml 2300 ml 1500 ml BalanceBalance -1700 ml -1300 ml -1400 ml Exam Constitutional: alert, oriented (No apparent distress) Respiratory: clear to auscultation, normal air movement Cardiovascular: regular rate and rhythm (S1-S2 heard) Gastrointestinal: soft, non-tender, bowel sounds Extremities: edema Labs Result Diagram: 05/28/19 0549 05/28/19 0549 Results 24hrs Laboratory Tests Test 05/28/19 05:49 White Blood Count 6.9 Red Blood Count 4.26 Hemoglobin 12.6 Hematocrit 39.8 Mean Corpuscular Volume 93.4 Mean Corpuscular Hemoglobin 29.6 Mean Corpuscular Hemoglobin Concent 31.7 L Red Cell Distribution Width 13.4 Platelet Count 297 Mean Platelet Volume 9.3 Immature Granulocytes % 0.400 Neutrophils % 60.8 Lymphocytes % 26.6 Monocytes % 8.9 Eosinophils % 2.7 Basophils % 0.6 Nucleated Red Blood Cells % 0.0 Immature Granulocytes # 0.030 Neutrophils # 4.2 Lymphocytes # 1.8 Monocytes # 0.6 Eosinophils # 0.2 Basophils # 0.0 Nucleated Red Blood Cells # 0.0 Erythrocyte Sedimentation Rate 26 H D-Dimer 778.74 #H D-Dimer Comment Sodium Level 141 Potassium Level 3.6 Chloride Level 102 Carbon Dioxide Level 28 Anion Gap 11 Blood Urea Nitrogen 12 Creatinine 0.50 Est Glomerular Filtrat Rate mL/min > 60 Glucose Level 125 Calcium Level 9.0 Magnesium Level 2.1 Medications Medications Current Medications Nortriptyline HCl (Aventyl) 75 mg HS PO Last administered on 05/27/19 21:14; Admin Dose 75 MG; Start 05/21/19 at 21:00 Gabapentin (Neurontin) 600 mg Q8H PO Last administered on 05/28/19 14:58; Admin Dose 600 MG; Start 05/20/19 at 23:00 Acetaminophen (Tylenol Tab) 650 mg Q4H PRN PO pain/fever Last administered on 05/28/19 10:41; Admin Dose 650 MG; Start 05/20/19 at 23:00 Ondansetron HCl (Zofran Inj) 4 mg Q4H PRN IV nausea; Start 05/20/19 at 23:00 Morphine Sulfate (morphine) 4 mg Q4H PRN IV severe pain 7-10 Last administered on 05/27/19 21:18; Admin Dose 4 MG; Start 05/20/19 at 23:00 Pantoprazole (Protonix Tab) 40 mg DAILY@06 PO Last administered on 05/28/19 05:30; Admin Dose 40 MG; Start 05/22/19 at 06:00 Acetaminophen/ Hydrocodone Bitart ([place] (7.5-325)) 1 tab Q6H PRN PO MODERATE PAIN LEVEL 4-6 Last administered on 05/28/19 08:30; Admin Dose 1 TAB; Start 05/24/19 at 17:00 Lactulose (Enulose) 20 gm DAILY PRN PO CONSTIPATION; Start 05/25/19 at 13:00 Simethicone (Mylicon) 80 mg Q4 PRN PO DISTENSION/GAS/BLOATING Last administered on 05/27/19 09:37; Admin Dose 80 MG; Start 05/27/19 at 08:00 Furosemide (Lasix) 20 mg BID DIURETICS IV Last administered on 05/28/19 05:41; Admin Dose 20 MG; Start 7/22/19 at 10:30 Betamethasone Dipropionate (Betamethasone 0.05% Oint) 1 applic BID TOP Last administered on 05/28/19at 08:27; Admin Dose 1 APPLIC; Start 05/27/19 at 12:00 Cephalexin (Keflex) 500 mg Q8 PO Last administered on 05/28/19at 13:26; Admin Dose 500 MG; Start 05/27/19 at 14:00 Dimitri Bhatti DO May 28, 2019 18:39
[2019-05-28] MEDS: NORTRIPTYLINE 25 MG CAP PO SCH (19:48)
[2019-05-28 20:00] VITALS: BP 108/68; PULSE 109; RESP 17
== END 2019-05-28 20:22 | disposition home or self-care (01) | DRG 26 ==
LOC: E/R 14:09 → ICU 20:46 → 6WM 05-25 18:48
PROVIDERS: ADMIT Legal Medicine; ATTEND Legal Medicine
PROC: 009600Z Drainage of Cerebral Ventricle with Drainage Device, Open Approach (ICD-10-PCS; principal; 2019-05-21 19:30)
PROC: 00W60JZ Revision of Synthetic Substitute in Cerebral Ventricle, Open Approach (ICD-10-PCS; 2019-05-24)
DX: T85.01XA Breakdown (mechanical) of ventricular intracranial (communicating) shunt, initial encounter (principal); Q05.4 Unspecified spina bifida with hydrocephalus; N39.0 Urinary tract infection, site not specified; N31.9 Neuromuscular dysfunction of bladder, unspecified; M79.7 Fibromyalgia; R00.0 Tachycardia, unspecified; B96.20 Unspecified Escherichia coli [E. coli] as the cause of diseases classified elsewhere; D64.9 Anemia, unspecified; L25.9 Unspecified contact dermatitis, unspecified cause; Z88.0 Allergy status to penicillin; Z99.3 Dependence on wheelchair; Z87.728 Personal history of other specified (corrected) congenital malformations of nervous system and sense organs; Y75.1 Therapeutic (nonsurgical) and rehabilitative neurological devices associated with adverse incidents
CPT/HCPCS: 36415; 70250; 70450; 70496; 70551; 71045; 71260; 74018; 80048; 80053; 80202; 81003; 81025; 82945; 83735; 83880; 84157; 84443; 85025; 85378; 85576; 85610; 85651; 85730; 87070; 87081; 87086; 88300; 89051; 93005; 93306; 93970; 96374; C1729; J0131; J0690; J0696; J1100; J1170; J1885; J1940; J2175; J2250; J2270; J2370; J2405; J2710; J2765; J3010; J3370; J3480; J7040; J7042; P9612; Q9967

== ENCOUNTER 2019-07-14 16:50 | Inpatient (IN) | payer OTHER ==
[~2019-07-14] VITALS: Ht 147.3 cm; Wt 71.9 kg
[~2019-07-14 16:50] MED LIST changes: +BTM.05O15 TOP; +GABA300C16 PO; +NAPR-985 PO; +NORT75CA PO; +ONDA4TAB8 PO; +OXYC-279 PO; +PANT40TA4 PO; -SAVELLA; -[UNRECOGNIZED DRUG - REMARK]
[2019-07-14] MEDS ORDERED: KETOROLAC 15 MG INJ IV STA (17:18)
[2019-07-14] MEDS ORDERED: SOD CHLORIDE 0.9% 1,000 ML IV STA (17:18)
[2019-07-14] MEDS ORDERED: ONDANSETRON 4 MG INJ IV STA (17:24)
[2019-07-14] MEDS ORDERED: OXYCODONE/ACETAMINOPHEN (5/325) TAB PO ONE (19:00)
[2019-07-14] MEDS: morphine 4 MG/ML VIAL IV PRN (21:20)
[2019-07-14] MEDS ORDERED: ZOLPIDEM 5 MG TAB PO PRN (21:30)
[2019-07-14] MEDS ORDERED: ONDANSETRON 4 MG INJ IV PRN (21:30)
[2019-07-14] MEDS: FAMOTIDINE 20 MG INJ IV SCH (22:19)
[2019-07-14] MEDS: DEXTROSE 5%-0.45% NACL 1,000 ML IV SCH (22:19)
[2019-07-14] MEDS: GABAPENTIN 300 MG CAP PO SCH (23:25)
[2019-07-15 00:01] VITALS: BP 120/77; PULSE 90; RESP 17
[2019-07-15 00:36] VITALS: Ht 147.3 cm; Wt 71.9 kg
[2019-07-15] MEDS: GABAPENTIN 300 MG CAP PO SCH ×3 (04:55→21:15)
[2019-07-15] MEDS: morphine 4 MG/ML VIAL IV PRN ×3 (04:59→19:36)
[2019-07-15 07:37] VITALS: BP 101/62; PULSE 85; RESP 19
[2019-07-15] MEDS: FAMOTIDINE 20 MG INJ IV SCH ×2 (09:34→21:15)
[2019-07-15 12:51] VITALS: BP 126/78; PULSE 98; RESP 19
[2019-07-15] MEDS: DEXTROSE 5%-0.45% NACL 1,000 ML IV SCH ×2 (12:54→22:30)
[2019-07-15 19:54] VITALS: BP 116/77; PULSE 91; RESP 18
[2019-07-15] MEDS: NORTRIPTYLINE 25 MG CAP PO SCH (21:15)
[2019-07-16] VITALS (14 sets, daily range): BP systolic 109–126; BP diastolic 68–82; PULSE 67–121; RESP 12–23
[2019-07-16] MEDS: DEXTROSE 5%-0.45% NACL 1,000 ML IV SCH ×2 (02:46→18:44)
[2019-07-16] MEDS: GABAPENTIN 300 MG CAP PO SCH ×3 (05:34→20:30)
[2019-07-16] MEDS: morphine 4 MG/ML VIAL IV PRN ×3 (07:40→22:10)
[2019-07-16] MEDS: FAMOTIDINE 20 MG INJ IV SCH (08:18)
[2019-07-16] MEDS ORDERED: FENTAnyl 50 MCG/ML VIAL ONE (17:26)
[2019-07-16] MEDS ORDERED: PROPOFOL 20 ML ONE (17:26)
[2019-07-16] MEDS: PANTOPRAZOLE (EC) 40 MG TAB PO SCH (18:43)
[2019-07-16] MEDS: NORTRIPTYLINE 25 MG CAP PO SCH (20:26)
[2019-07-17 00:37] VITALS: PULSE 113
[2019-07-17 01:46] VITALS: BP 97/61; PULSE 100; RESP 18
[2019-07-17] MEDS: PANTOPRAZOLE (EC) 40 MG TAB PO SCH (05:27)
[2019-07-17] MEDS: GABAPENTIN 300 MG CAP PO SCH ×2 (05:27→12:51)
[2019-07-17] MEDS: DEXTROSE 5%-0.45% NACL 1,000 ML IV SCH (05:30)
[2019-07-17] MEDS: morphine 4 MG/ML VIAL IV PRN (06:54)
[2019-07-17 08:22] VITALS: BP 102/68; PULSE 103; RESP 18
== END 2019-07-17 14:45 | disposition home or self-care (01) | DRG 384 ==
LOC: E/R 16:50 → MS1 21:29
PROVIDERS: ADMIT Internal Medicine; ATTEND Internal Medicine
PROC: 0DB78ZX Excision of Stomach, Pylorus, Via Natural or Artificial Opening Endoscopic, Diagnostic (ICD-10-PCS; 2019-07-16)
PROC: 0DB68ZX Excision of Stomach, Via Natural or Artificial Opening Endoscopic, Diagnostic (ICD-10-PCS; principal; 2019-07-16 18:00)
DX: K25.9 Gastric ulcer, unspecified as acute or chronic, without hemorrhage or perforation (principal); Q05.4 Unspecified spina bifida with hydrocephalus; N31.9 Neuromuscular dysfunction of bladder, unspecified; F32.9 Major depressive disorder, single episode, unspecified; K20.9 Esophagitis, unspecified; K29.70 Gastritis, unspecified, without bleeding; K80.20 Calculus of gallbladder without cholecystitis without obstruction; Z87.891 Personal history of nicotine dependence; Z98.2 Presence of cerebrospinal fluid drainage device
CPT/HCPCS: 36415; 76705; 78226; 80053; 81001; 81025; 83690; 85025; 87086; 88305; 88312; 96361; 96374; 96375; A4310; A9537; J1885; J2270; J2405; J3010; J7030; J7042